=== PATIENT | female | born 1985 | race Hispanic/Latino ===

== ENCOUNTER 2018-06-27 22:44 | Emergency (ER) | payer OTHER ==
[2018-06-27] MEDS ORDERED: KETOROLAC 30 MG/ML INJ ONE (23:37)
[2018-06-27 23:56] LABS: Urine Blood 2+ (NEG); Urine Glucose NEGATIVE (NEG); Urine Protein 1+ (NEG); Urine Specific Gravity 1.015 (1.005-1.030); Urine pH 8.5 (5.0-7.0)
[2018-06-28 00:17] LABS: Absolute Lymphocytes (CBC) 2.4 K/uL (0.7-4.9); Absolute Monocytes 0.7 K/uL (0.1-1.3); Absolute Neutrophil 10.1 K/uL (1.8-8.0); Basophils % 0.7 % (0-1.3); Eosinophils % 1.6 % (0-4.4); Lymphocytes % 17.9 % (15.3-44.8); MPV 8.3 fL (7.6-11.3); Monocytes % 5.4 % (3.3-12.3)
[2018-06-28 00:27] LABS: Potassium 3.7 mmol/L (3.5-5.1)
[2018-06-28 00:28] LABS: Albumin 3.8 g/dL (3.4-5.0); Bilirubin Direct 0.2 mg/dL (0-0.2); Bilirubin Total 0.6 mg/dL (0.2-1.0); Protein, Total 7.6 g/dL (6.4-8.2)
[2018-06-28] MEDS ORDERED: MORPHINE 4 MG/ML SYR ONE (01:53)
[2018-06-28] MEDS ORDERED: ONDANSETRON 4 MG/2 ML VIAL ONE (01:55)
--- NOTE | 2018-06-28 03:32 | EDPHYS ---
Physician Documentation [facility] Name: Charlene Kramer Age: 33 yrs Sex: Female : 1985 Arrival Date: 06/27/2018 Time: 22:47 Bed 27 Private MD: ED Physician Cr Arana HPI: 06/28 02:29 This 33 yrs old Female presents to ER via Ambulatory with complaints of Back tw4 Pain, Vomiting. 02:29 The patient presents with pain that is acute, with no known mechanism of injury. The tw4 symptoms are located in the right mid back. Onset: The symptoms/episode began/occurred today. The pain does not radiate. Associated signs and symptoms: The patient has no apparent associated signs or symptoms. Modifying factors: The patient symptoms are alleviated by nothing, the patient symptoms are aggravated by nothing. Severity of symptoms: At their worst the symptoms were moderate, in the emergency department the symptoms are unchanged. The patient has not experienced similar symptoms in the past. 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 - Social history:: Smoking status: Patient/guardian denies using tobacco, Patient/guardian denies using alcohol, street drugs. - Ebola Screening: : No symptoms or risks identified at this time. ROS: 06/28 02:29 Constitutional: Negative for fever, chills, and weight loss, Eyes: Negative for injury, tw4 pain, redness, and discharge, Cardiovascular: Negative for chest pain, palpitations, and edema, Respiratory: Negative for shortness of breath, cough, wheezing, and pleuritic chest pain, MS/Extremity: Negative for injury and deformity, Skin: Negative for injury, rash, and discoloration, Neuro: Negative for headache, weakness, numbness, tingling, and seizure. Back: Positive for flank pain. Exam: 02:29 Constitutional: This is a well developed, well nourished patient who is awake, alert, tw4 and in no acute distress. Head/Face: Normocephalic, atraumatic. Chest/axilla: Normal chest wall appearance and motion. Nontender with no deformity. No lesions are appreciated. Cardiovascular: Regular rate and rhythm with a normal S1 and S2. No gallops, murmurs, or rubs. Normal PMI, no JVD. No pulse deficits. Respiratory: Lungs have equal breath sounds bilaterally, clear to auscultation and percussion. No rales, rhonchi or wheezes noted. No increased work of breathing, no retractions or nasal flaring. MS/ Extremity: Pulses equal, no cyanosis. Neurovascular intact. Full, normal range of motion. Neuro: Awake and alert, GCS 15, oriented to person, place, time, and situation. Cranial nerves II-XII grossly intact. Motor strength 5/5 in all extremities. Sensory grossly intact. Cerebellar exam normal. Normal gait. Vital Signs: 06/27 23:08 BP 137 / 83; Pulse 62; Resp 18 S; Temp 97.7(O); Pulse Ox 100% on R/A; Weight 72.57 kg bb (R); Height 5 ft. 4 in. (162.56 cm) (R); Pain 10/10; 23:46 BP 108 / 90; Pulse 63; Resp 20; Pulse Ox 100% ; lt1 06/28 01:11 BP 98 / 80; Pulse 61; Resp 18; Pulse Ox 100% on R/A; Pain 0/10; mg2 02:05 BP 112 / 71; Pulse 63; Resp 18; Pulse Ox 100% on R/A; Pain 4/10; mg2 03:11 BP 93 / 61; Pulse 65; Resp 18; Pulse Ox 100% on R/A; Pain 2/10; mg2 06/27 23:08 Body Mass Index 27.46 (72.57 kg, 162.56 cm) bb MDM: 06/27 23:22 Patient medically screened. tw4 06/28 06:50 Differential diagnosis: Cholelithiasis chronic back pain, Osteoarthritis Pyelonephritis tw4 Renal Infarction. Data reviewed: vital signs, nurses notes. Data interpreted: Pulse oximetry:. Counseling: I had a detailed discussion with the patient and/or guardian regarding: the historical points, exam findings, and any diagnostic results supporting the discharge/admit diagnosis. Counseling: I had a detailed discussion with the patient and/or guardian regarding: lab results, radiology results. Medication response: morphine markedly relieved the patient's pain. Symptoms have improved, Response to treatment: and as a result, I will discharge patient. ED course: Pt 's CT revealed 4mm ureteral stone with mild hydronephrosis. Pt states she felt better after pain meds. 06/27 23:01 Order name: Basic Metabolic Panel mg2 06/27 23:01 Order name: CBC with Diff mg2 06/27 23: Order name: Creatinine for Radiology mg2 06/27 23:01 Order name: Hepatic Function mg2 06/27 23: Order name: Lipase mg2 06/27 23:33 Order name: Urine Dipstick--Ancillary (enter results) ar5 06/27 23: Order name: IV Saline Lock; Complete Time: 23:14 mg2 06/27 23: Order name: Labs collected and sent; Complete Time: 23:14 mg2 06/27 23:23 Order name: CT Stone Protocol tw4 06/27 23:33 Order name: Urine --Ancillary (enter results) ar5 Administered Medications: 06/27 23:27 Drug: TORadol 30 mg Route: IVP; Site: right antecubital; mg2 06/28 00:30 Follow up: Response: No adverse reaction; Marked relief of symptoms mg2 01:52 Drug: morphine 4 mg Route: IVP; Site: right antecubital; mg2 03:46 Follow up: Response: No adverse reaction; Marked relief of symptoms mg2 01:52 Drug: Zofran 4 mg Route: IVP; Site: right antecubital; mg2 03:45 Follow up: Response: No adverse reaction; Marked relief of symptoms mg2 Disposition: 06/28/18 03:31 Discharged to Home. Impression: Calculus of kidney with calculus of ureter. - Condition is Stable. - Discharge Instructions: Kidney Stones, Renal Colic. - Prescriptions for Ibuprofen 800 mg Oral Tablet - take 1 tablet by ORAL route every 8 hours As needed take with food; 30 tablet. Tylenol- Codeine #3 300-30 mg Oral Tablet - take 2 tablet by ORAL route every 6 hours As needed; 6 tablet. - Medication Reconciliation Form, Thank You Letter, Antibiotic Education, Prescription Opioid Use form. - Follow up: Private Physician; When: Upon discharge from the Emergency Department; Reason: If symptoms return, Recheck today's complaints, Continuance of care. - Problem is new. - Symptoms have improved. Signatures: Dispatcher [employer] EDLaxmi Shaikh RN RN bb Cr Arana MD MD tw4 Deshawn Lamb RN RN mg2 Corrections: (The following items were deleted from the chart) 03:46 03:31 06/28/2018 03:31 Discharged to Home. Impression: Calculus of kidney with calculus mg2 of ureter. Condition is Stable. Forms are Medication Reconciliation Form, Thank You Letter, Antibiotic Education, Prescription Opioid Use. Follow up: Private Physician; When: Upon discharge from the Emergency Department; Reason: If symptoms return, Recheck today's complaints, Continuance of care. Problem is new. Symptoms have improved. tw4
--- NOTE | 2018-06-28 03:32 | ER ---
Nurse's Notes [facility] Name: Charlene Kramer Age: 33 yrs Sex: Female : 1985 Arrival Date: 06/27/2018 Time: 22:47 Bed 27 Private MD: Diagnosis: Calculus of kidney with calculus of ureter Presentation: 06/27 23:06 Presenting complaint: Patient states: she started having lower abdominal cramping which bb then started hurting in her back pain is intermittent and currently 10/10 denies dysuria. Transition of care: patient was not received from another setting of care. Onset of symptoms was June 27, 2018. Risk Assessment: Do you want to hurt yourself or someone else? Patient reports no desire to harm self or others. Initial Sepsis Screen: Does the patient meet any 2 criteria? No. Patient's initial sepsis screen is negative. Does the patient have a suspected source of infection? No. Patient's initial sepsis screen is negative. Care prior to arrival: None. 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 - Social history:: Smoking status: Patient/guardian denies using tobacco, Patient/guardian denies using alcohol, street drugs. - Ebola Screening: : No symptoms or risks identified at this time. Screenin:16 Abuse screen: Denies threats or abuse. Denies injuries from another. Nutritional mg2 screening: No deficits noted. Tuberculosis screening: No symptoms or risk factors identified. Fall Risk IV access (20 points). Assessment: 23:15 General: Appears uncomfortable, Behavior is restless. Pain: Complains of pain in back mg2 Pain radiates to abdomen Pain currently is 10 out of 10 on a pain scale. Quality of pain is described as aching, Pain began gradually, Is intermittent. Neuro: Level of Consciousness is awake, alert, obeys commands, Oriented to person, place, time, situation. Cardiovascular: Capillary refill < 3 seconds Patient's skin is warm and dry. Respiratory: Airway is patent Respiratory effort is even, unlabored, Respiratory pattern is regular, symmetrical. GI: Abdomen is flat, non-distended, Reports lower abdominal pain. :. EENT: No signs and/or symptoms were reported regarding the EENT system. Derm: Skin is intact, is healthy with good turgor, Skin is pink, warm \T\ dry. normal. Musculoskeletal: Reports pain in back. 06/28 01:12 Reassessment: Patient states feeling better. mg2 Vital Signs: 06/27 23:08 BP 137 / 83; Pulse 62; Resp 18 S; Temp 97.7(O); Pulse Ox 100% on R/A; Weight 72.57 kg bb (R); Height 5 ft. 4 in. (162.56 cm) (R); Pain 10/10; 23:46 BP 108 / 90; Pulse 63; Resp 20; Pulse Ox 100% ; lt1 06/28 01:11 BP 98 / 80; Pulse 61; Resp 18; Pulse Ox 100% on R/A; Pain 0/10; mg2 02:05 BP 112 / 71; Pulse 63; Resp 18; Pulse Ox 100% on R/A; Pain 4/10; mg2 03:11 BP 93 / 61; Pulse 65; Resp 18; Pulse Ox 100% on R/A; Pain 2/10; mg2 06/27 23:08 Body Mass Index 27.46 (72.57 kg, 162.56 cm) bb ED Course: 06/27 22:47 Patient arrived in ED. es 23:00 Deshawn Lamb, RN is Primary Nurse. mg2 23:08 Triage completed. bb 23:08 Arm band placed on Patient placed in an exam room, on a stretcher, on pulse oximetry. bb 23:16 No provider procedures requiring assistance completed. Inserted saline lock: 20 gauge mg2 in right antecubital area, using aseptic technique. Blood collected. 23:17 Patient has correct armband on for positive identification. mg2 23:22 Cr Arana MD is Attending Physician. tw4 06/28 00:26 CT Stone Protocol In Process Unspecified. EDMS 03:46 IV discontinued, intact, bleeding controlled, No redness/swelling at site. Pressure mg2 dressing applied. Administered Medications: 06/27 23:27 Drug: TORadol 30 mg Route: IVP; Site: right antecubital; mg2 06/28 00:30 Follow up: Response: No adverse reaction; Marked relief of symptoms mg2 01:52 Drug: morphine 4 mg Route: IVP; Site: right antecubital; mg2 03:46 Follow up: Response: No adverse reaction; Marked relief of symptoms mg2 01:52 Drug: Zofran 4 mg Route: IVP; Site: right antecubital; mg2 03:45 Follow up: Response: No adverse reaction; Marked relief of symptoms mg2 Outcome: 03:31 Discharge ordered by MD. murdock 03:46 Discharged to home ambulatory. mg2 03:46 Condition: stable 03:46 Discharge instructions given to patient, Instructed on discharge instructions, follow up and referral plans. medication usage, Demonstrated understanding of instructions, follow-up care, medications, Prescriptions given X 2. 03:46 Patient left the ED. mg2 Signatures: Dispatcher [employer] Effie Frey Brenda RN RN Cr Redding MD MD tw4 Deshawn Lamb RN RN [facility]
--- NOTE | 2018-06-30 10:58 | RAD REPORT ---
EXAM DESCRIPTION: CT - Stone Protocol - 06/28/2018 12:54 am EXAM DESCRIPTION: Stone Protocol CLINICAL HISTORY: 33 years Female lower abdominal cramping radiating to the back. COMPARISON: None. TECHNIQUE: Contiguous axial images obtained through the abdomen and pelvis without IV contrast. Refo rmatted images obtained. This exam was performed according to our department optimization program which includes automated exp osure control, adjustment of the mA and/or kv according to patient size and/or use of iterative recon struction technique. FINDINGS: Minimal scarring/atelectasis in the lower lungs. The liver appears unremarkable. The spleen and pancreas appear unremarkable. No adrenal masses. There is mild right hydronephrosis. There is a calculus in the distal right ureter measuring 0.4 cm. No definite renal calculi are identified. There are multiple gallstones in the gallbladder. No aneurysmal dilatation of the aorta. No bowel obstruction. The appendix appears unremarkable. No significant free pelvic fluid. Small fat-containing umbilical hernia. IMPRESSION: Mild right hydronephrosis with a calculus in the distal right ureter. Cholelithiasis. Electronically signed by: Devonte Yi MD 06/28/2018 12:38 AM CDT Due to temporary technical issues with the PACS/Fluency reporting system, reports are being signed by the in house radiologist as a courtesy to ensure prompt reporting. The interpreting radiologist is f ully responsible for the content of the report.
== END 2018-06-28 03:46 | disposition home or self-care (01) ==
LOC: ER 22:44
DX: N20.2 Calculus of kidney with calculus of ureter (principal)
CPT/HCPCS: 36415; 74176; 76377; 80048; 80076; 81003; 81025; 83690; 85025; 96374; 96375; 99284; J2405

== ENCOUNTER 2018-06-28 10:25 | Emergency (ER) | payer OTHER ==
[2018-06-28] MEDS ORDERED: NA CHLORIDE 0.9% 500 ML ONE (11:00)
[2018-06-28] MEDS ORDERED: TAMSULOSIN 0.4 MG SR CAP ONE (11:00)
[2018-06-28] MEDS ORDERED: ONDANSETRON 4 MG/2 ML VIAL ONE ×2 (11:00→11:46)
[2018-06-28] MEDS ORDERED: MORPHINE 4 MG/ML SYR ONE (11:00)
[2018-06-28] MEDS ORDERED: MAGNESIUM SULFATE 1 gm IVPB 1 GM/100 ML BAG IV ONE (11:01)
[2018-06-28] MEDS ORDERED: NA CHLORIDE 0.9% 1,000 ML ONE (11:01)
[2018-06-28 11:09] LABS: Absolute Lymphocytes (CBC) 1.2 K/uL (0.7-4.9); Absolute Monocytes 0.7 K/uL (0.1-1.3); Absolute Neutrophil 12.3 K/uL (1.8-8.0); Basophils % 0.4 % (0-1.3); Eosinophils % 0.4 % (0-4.4); Hematocrit 41.3 % (36.0-45.0); Lymphocytes % 8.6 % (15.3-44.8); MPV 8.1 fL (7.6-11.3); Monocytes % 4.6 % (3.3-12.3); RBC Red Blood Cell Count 4.88 M/uL (3.86-4.86)
[2018-06-28 11:23] LABS: Bilirubin Direct 0.2 mg/dL (0-0.2); Bilirubin Total 0.8 mg/dL (0.2-1.0); Potassium 3.6 mmol/L (3.5-5.1); Protein, Total 7.7 g/dL (6.4-8.2)
--- NOTE | 2018-06-28 12:13 | EDPHYS ---
Physician Documentation [facility] Name: Charlene Kramer Age: 33 yrs Sex: Female : 1985 Arrival Date: 06/28/2018 Time: 10:29 Bed 16 Private MD: None, None ED Physician Juan Wallis HPI: 06/28 10:55 This 33 yrs old Female presents to ER via Ambulatory with complaints of cp Possible Kidney Stone. 10:55 The patient complains of pain in the right low back and right mid back. cp 10:55 The pain radiates to the abdomen. Onset: The symptoms/episode began/occurred yesterday, cp and became worse this morning. Associated signs and symptoms: Pertinent positives: nausea, pain radiating to right lower extremity, Pertinent negatives: diarrhea, fever. The patient has been recently seen at the [facility] Emergency Department, for similar complaints labs were performed, CT scan was performed, this morning. 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 - Social history:: Smoking status: Patient/guardian denies using tobacco. - Ebola Screening: : Patient negative for fever greater than or equal to 101.5 degrees Fahrenheit, and additional compatible Ebola Virus Disease symptoms. ROS: 11:00 Constitutional: Negative for body aches, chills, fever, poor PO intake. cp 11:00 Cardiovascular: Negative for chest pain, palpitations. cp 11:00 Respiratory: Negative for cough, shortness of breath, wheezing. 11:00 Abdomen/GI: Positive for abdominal pain, nausea, Negative for vomiting, diarrhea, constipation. 11:00 Back: Positive for flank pain, on the right. 11:00 Neuro: Negative for altered mental status, headache, weakness. 11:00 All other systems are negative. Exam: 11:05 Constitutional: The patient appears in no acute distress, alert, awake, non-toxic, well cp developed, well nourished, uncomfortable. 11:05 Head/Face: Normocephalic, atraumatic. cp 11:05 Eyes: Periorbital structures: appear normal, Conjunctiva: normal, no exudate, no injection, Sclera: no appreciated abnormality, Lids and lashes: appear normal, bilaterally. 11:05 ENT: External ear(s): are unremarkable, Nose: is normal, Mouth: Lips: moist, Oral mucosa: pink and intact, moist, Posterior pharynx: is normal, airway is patent, no erythema, no exudate. 11:05 Neck: ROM/movement: is normal, is supple, without pain, no range of motions limitations, no nuchal rigidity. 11:05 Chest/axilla: Inspection: normal, Palpation: is normal, no crepitus, no tenderness. 11:05 Cardiovascular: Rate: normal, Rhythm: regular. 11:05 Respiratory: the patient does not display signs of respiratory distress, Respirations: normal, no use of accessory muscles, no retractions, no splinting, no tachypnea, labored breathing, is not present, Breath sounds: are clear throughout, no decreased breath sounds, no stridor, no wheezing. 11:05 Abdomen/GI: Inspection: abdomen appears normal, Bowel sounds: active, all quadrants, Palpation: soft, in all quadrants, moderate abdominal tenderness, in the right lower quadrant, involuntary guarding, is not appreciated. 11:05 Back: pain, that is moderate, of the right mid back and right low back, ROM is normal. 11:05 Skin: cellulitis, is not appreciated, no rash present. Vital Signs: 10:29 BP 116 / 80; Pulse 61; Resp 16; Temp 98.2(O); Pulse Ox 99% on R/A; Weight 74.84 kg (R); rb1 Height 5 ft. 4 in. (162.56 cm) (R); Pain 10/10; 11:29 BP 106 / 69; Pulse 64; Resp 19; Pulse Ox 100% on R/A; Pain 4/10; rb1 12:29 BP 117 / 88; Pulse 62; Resp 16; Pulse Ox 99% on R/A; rb1 10:29 Body Mass Index 28.32 (74.84 kg, 162.56 cm) rb1 MDM: 10:32 Patient medically screened. cp 11:00 Differential diagnosis: nephrolithiasis, pyelonephritis, UTI, ureter obstruction, cp hydronephrosis. 11:50 Data reviewed: vital signs, nurses notes, lab test result(s). cp 11:50 Response to treatment: the patient's symptoms have mildly improved after treatment. cp 12:20 Physician consultation: DR Garcia, urologist \T\[facility], will cp accept patient as transfer. 06/28 10:44 Order name: Basic Metabolic Panel; Complete Time: 11:31 cp 06/28 11:31 Interpretation: Normal except: GLUC 137; CRE 1.58; GFR 38. cp 06/28 10:44 Order name: CBC with Diff cp 06/28 11:32 Interpretation: Normal except: WBC 14.4; RBC 4.88; PHILIPP% 86.0; LYM% 8.6; NEUT A 12.3. cp 06/28 10:44 Order name: Creatinine for Radiology; Complete Time: 11:31 cp 06/28 11:32 Interpretation: Abnormal: CRE 1.63; GFR 36. cp 06/28 10:44 Order name: Hepatic Function; Complete Time: 11:31 cp 06/28 12:11 Interpretation: Normal except: GLOB 3.7. cp 06/28 10:44 Order name: Lipase; Complete Time: 11:31 cp 06/28 10:44 Order name: Urine Microscopic Only; Complete Time: 13:49 cp 06/28 13:49 Interpretation: Normal except: UWBC 5-10; UBACT 20-50. 06/28 10:44 Order name: XRAY Abdomen 1 View (KUB); Complete Time: 13:49 06/28 12:22 Order name: Urine Culture EDDE 06/28 10:44 Order name: IV Saline Lock; Complete Time: 10:57 cp 06/28 10:44 Order name: Labs collected and sent; Complete Time: 10:57 cp Administered Medications: 11:00 Drug: Zofran 4 mg Route: IVP; Site: left forearm; rb1 11:30 Follow up: Response: No adverse reaction; Nausea unchanged rb1 11:00 Drug: Magnesium Sulfate 1 grams Route: IVPB; Infused Over: 1 hrs; Site: left forearm; rb1 12:10 Follow up: Response: No adverse reaction; IV Status: Completed infusion rb1 11:00 Drug: Flomax 0.4 mg Route: PO; rb1 11:30 Follow up: Response: No adverse reaction rb1 11:00 Drug: morphine 4 mg Route: IVP; Site: left forearm; rb1 11:15 Follow up: Response: No adverse reaction; Pain is decreased rb1 11:00 Drug: NS 0.9% 500 ml Route: IV; Rate: bolus; Site: left forearm; rb1 11:35 Follow up: IV Status: Completed infusion rb1 11:35 Drug: NS 0.9% 1000 ml Route: IV; Rate: 125 ml/hr; Site: left forearm; rb1 13:56 Follow up: IV Status: Infusion continued upon transfer rb1 11:36 Drug: Zofran 4 mg Route: IVP; Site: left forearm; rb1 12:10 Follow up: Response: No adverse reaction; Nausea is decreased rb1 12:55 Drug: Rocephin - (cefTRIAXone) 1 grams Route: IVPB; Infused Over: 30 mins; Site: left rb1 forearm; 13:25 Follow up: Response: No adverse reaction; IV Status: Completed infusion rb1 Disposition: 12:30 Chart complete. cp Disposition: 06/28/18 12:13 Transfer ordered to [facility]. Diagnosis is Calculus of kidney and ureter - Right. - Reason for transfer: Higher level of care. - Accepting physician is DR Garcia. - Condition is Stable. - Problem is new. - Symptoms have improved. Signatures: Dispatcher [employer] EDMS Jose R Lam PA PA cp Barber, Rebecca, RN RN rb1 Corrections: (The following items were deleted from the chart) 13:56 12:13 06/28/2018 12:13 Transfer ordered to [facility]. Diagnosis is rb1 Calculus of kidney and ureter - Right. Reason for transfer: Higher level of care. Accepting physician is DR Garcia. Condition is Stable. Problem is new. Symptoms have improved. cp
--- NOTE | 2018-06-28 12:13 | ER ---
Nurse's Notes [facility] Name: Charlene Kramer Age: 33 yrs Sex: Female : 1985 Arrival Date: 06/28/2018 Time: 10:29 Bed 16 Private MD: None, None Diagnosis: Calculus of kidney and ureter-Right Presentation: 06/28 10:29 Presenting complaint: Patient states: Reports she was here yesterday for the same rb1 complaint and was diagnosed with kidney stones. She was unable to get her prescriptions filled due to the pharmacy being closed when she was discharged. Transition of care: patient was not received from another setting of care. Onset of symptoms was June 27, 2018. Risk Assessment: Do you want to hurt yourself or someone else? Patient reports no desire to harm self or others. Initial Sepsis Screen: Does the patient meet any 2 criteria? No. Patient's initial sepsis screen is negative. Does the patient have a suspected source of infection? No. Patient's initial sepsis screen is negative. Care prior to arrival: None. 10:29 Method Of Arrival: Ambulatory rb1 10: Acuity: RONY 3 rb1 Triage Assessment: 10: General: Appears uncomfortable, Behavior is crying, Denies fever, Pt. was here rb1 yesterday and diagnosed with kidney stones on the right side.. General: Pt. received prescription for Ibuprofen 800 mg and Tylenol #3 yesterday when she came to the ER.. Pain: Complains of pain in suprapubic area, right lower quadrant and left lower quadrant Pain radiates to right flank Pain currently is 10 out of 10 on a pain scale. Pain began 1 day ago. Neuro: Level of Consciousness is awake, alert, obeys commands, Oriented to person, place, time, situation. Cardiovascular: Capillary refill < 3 seconds is brisk in bilateral fingers. Respiratory: Airway is patent Respiratory effort is even, unlabored, Respiratory pattern is regular, symmetrical. GI: Reports nausea, vomiting. : Reports pain with urination. Derm: Skin is pink, warm \T\ dry. Musculoskeletal: Range of motion: intact in all extremities. 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 - Social history:: Smoking status: Patient/guardian denies using tobacco. - Ebola Screening: : Patient negative for fever greater than or equal to 101.5 degrees Fahrenheit, and additional compatible Ebola Virus Disease symptoms. Screenin:29 Abuse screen: Denies threats or abuse. Nutritional screening: No deficits noted. rb1 Tuberculosis screening: No symptoms or risk factors identified. Fall Risk None identified. Assessment: 10:29 General: See triage assessment. rb1 10:29 GI: Bowel sounds present X 4 quads. Abd is soft X 4 quads. rb1 11:29 Reassessment: Patient appears in no apparent distress at this time. No changes from rb1 previously documented assessment. pt. still fills nauseous; provider notified. 12:29 Reassessment: Patient appears in no apparent distress at this time. Patient and/or rb1 family updated on plan of care and expected duration. Pain level reassessed. Patient is alert, oriented x 3, equal unlabored respirations, skin warm/dry/pink. 12:45 Reassessment: Gave report to RENETTA Conley at [facility]. Information from the rb1 SBAR was given. All questions asked and answered. 13:29 Reassessment: Patient appears in no apparent distress at this time. Patient states rb1 symptoms have improved. Vital Signs: 10:29 BP 116 / 80; Pulse 61; Resp 16; Temp 98.2(O); Pulse Ox 99% on R/A; Weight 74.84 kg (R); rb1 Height 5 ft. 4 in. (162.56 cm) (R); Pain 10/10; 11:29 BP 106 / 69; Pulse 64; Resp 19; Pulse Ox 100% on R/A; Pain 4/10; rb1 12:29 BP 117 / 88; Pulse 62; Resp 16; Pulse Ox 99% on R/A; rb1 10:29 Body Mass Index 28.32 (74.84 kg, 162.56 cm) rb1 ED Course: 10:29 Patient arrived in ED. mr 10:29 None, None is Private Physician. mr 10:29 Chasidy Scott, RN is Primary Nurse. rb1 10:29 Arm band placed on right wrist. rb1 10:29 Patient has correct armband on for positive identification. Bed in low position. Call rb1 light in reach. Side rails up X 1. Pulse ox on. NIBP on. 10:30 Jose R Lam PA is PHCP. cp 10:30 Juan Wallis MD is Attending Physician. cp 10:41 Triage completed. rb1 10:54 Initial lab(s) drawn, by me, sent to lab. Inserted saline lock: 22 gauge in left dh3 forearm, using aseptic technique. Blood collected. 12:37 XRAY Abdomen 1 View (KUB) In Process Unspecified. EDMS 13:56 No provider procedures requiring assistance completed. Patient transferred, IV remains rb1 in place. Administered Medications: 11:00 Drug: Zofran 4 mg Route: IVP; Site: left forearm; rb1 11:30 Follow up: Response: No adverse reaction; Nausea unchanged rb1 11:00 Drug: Magnesium Sulfate 1 grams Route: IVPB; Infused Over: 1 hrs; Site: left forearm; rb1 12:10 Follow up: Response: No adverse reaction; IV Status: Completed infusion rb1 11:00 Drug: Flomax 0.4 mg Route: PO; rb1 11:30 Follow up: Response: No adverse reaction rb1 11:00 Drug: morphine 4 mg Route: IVP; Site: left forearm; rb1 11:15 Follow up: Response: No adverse reaction; Pain is decreased rb1 11:00 Drug: NS 0.9% 500 ml Route: IV; Rate: bolus; Site: left forearm; rb1 11:35 Follow up: IV Status: Completed infusion rb1 11:35 Drug: NS 0.9% 1000 ml Route: IV; Rate: 125 ml/hr; Site: left forearm; rb1 13:56 Follow up: IV Status: Infusion continued upon transfer rb1 11:36 Drug: Zofran 4 mg Route: IVP; Site: left forearm; rb1 12:10 Follow up: Response: No adverse reaction; Nausea is decreased rb1 12:55 Drug: Rocephin - (cefTRIAXone) 1 grams Route: IVPB; Infused Over: 30 mins; Site: left rb1 forearm; 13:25 Follow up: Response: No adverse reaction; IV Status: Completed infusion rb1 Outcome: 12:13 ER care complete, transfer ordered by . cp 13:56 Patient left the ED. rb1 13:56 Transferred by ground EMS to [facility] [place], Transfer form completed. rb1 13:56 Condition: stable 13:56 Instructed on the need for transfer. Signatures: Dispatcher [employer] Martina Jolley mr Jose R Lam PA PA cp Barber, Rebecca, RN RN [facility] Marlyn Almanzar 3
[2018-06-28 12:20] LABS: Urine Bacteria 20-50 /HPF (<20); Urine Culture Reflex Order REFLEXED; Urine RBC <5 /HPF (NONE SEEN)
[2018-06-28] MEDS ORDERED: CEFTRIAXONE/SWI 1gm 1 GM/10 ML SYR ONE (13:08)
--- NOTE | 2018-06-28 13:38 | RAD REPORT ---
EXAM DESCRIPTION: RAD - Abdomen 1 View (KUB) - 06/28/2018 12:36 pm CLINICAL HISTORY: Abdomen pain. FINDINGS: The bowel gas pattern is unremarkable. The patient's known right distal ureteral calculus is not clearly seen on this exam
[2018-06-28 20:27] LABS: Blood Morphology Comment NOT SEEN (NOT SEEN); Platelet Estimate ADEQ; Urine White Blood Cell Casts OK
== END 2018-06-28 13:56 | disposition short-term general hospital (02) ==
LOC: ER 10:25
DX: N20.2 Calculus of kidney with calculus of ureter (principal); Z87.442 Personal history of urinary calculi
CPT/HCPCS: 36415; 74018; 80048; 80076; 81015; 83690; 85025; 87086; 87088; 96361; 96365; 96367; 96375; 99285; J0696; J2405; J3475; J7030

== ENCOUNTER 2018-10-03 11:42 | Emergency (ER) | payer OTHER ==
--- OUTSIDE RECORDS SUMMARY | 2018-10-03 11:53 | XMS REPORT | Clinical Summary ---
:1985 Author Organization [facility] Address [address] [place] [address] Care Team Providers Name Role Phone Pcp, No Primary Care Provider Unavailable Allergies No Known Allergies Medications Medication Sig Dispensed Refills Start Date End Date Status sulfamethoxazole-trim Take 1 tablet (160 14 tablet 0 06/29/2018 ethoprim (BACTRIM DS) mg of trimethoprim 9 800-160 mg per tablet total) by mouth 2 (two) times daily for 7 days. traMADol (ULTRAM) 50 Take 1 tablet (50 30 tablet 0 06/29/2018 mg tablet mg total) by mouth 9 every 6 (six) hours as needed for up to 10 days. Max Daily Amount: 200 mg ondansetron (ZOFRAN) Take 1 tablet (4 30 tablet 0 06/29/2018 4 MG tablet mg total) by mouth 9 2 (two) times daily as needed for Nausea for up to 7 days. ketorolac (TORADOL) Take 1 tablet (10 10 tablet 0 07/23/2018 10 mg tablet mg total) by mouth 9 every 6 (six) hours as needed for Pain for up to 5 days. phenazopyridine Take 1 tablet (200 10 tablet 0 07/23/2018 (PYRIDIUM) 200 MG mg total) by mouth 9 tablet 3 (three) times daily as needed (for urinary discomfort) for up to 3 days. sulfamethoxazole-trim Take 1 tablet (160 6 tablet 0 07/23/2018 ethoprim (BACTRIM DS) mg of trimethoprim 9 800-160 mg per tablet total) by mouth 2 (two) times daily for 3 days. 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 Resolved Problems Problem Noted Date Resolved Date Contraceptive management 08/15/2017 06/29/2018 Encounters Date Type Specialty Care Team Description 07/23/2018 Anesthesia Event Natalie Lea GRNA 07/23/2018 Surgery Efren Garcia MD 07/23/2018 Hospital Encounter Efren Garcia MD 07/16/2018 Hospital Encounter Pre-Admission Efren Garcia MD 07/16/2018 Orders Only Lab Efren Garcia Calculus of ureter (Primary Dx); MD Irma Personal history of surgery to heart and great vessels, presenting hazards to health; Urinary tract infection without hematuria, site unspecified; Other specified pre-operative examination 06/28/2018 Anesthesia Event Kishor Mercer MD 06/28/2018 Surgery Efren Garcia CYSTBARRETT JONES MD IVELISSE 06/28/2018 - Hospital Encounter General Internal Efren Garcia Right ureteral 06/29/2018 Medicine MD Irma stone 06/28/2018 Outside Orders Lab Edward Oquendo Right ureteral stone (Primary Dx) after 10/02/2017 Social History Tobacco Use Types Packs/Day Years Used Date Never Smoker Smokeless Tobacco: Never Used Alcohol Use Drinks/Week oz/Week Comments No Alcohol Habits Answer Date Recorded How often do you have a drink containing alcohol? Never 07/16/2018 How many drinks containing alcohol do you have on a typical Not asked day when you are drinking? How often do you have six or more drinks on one occasion? Not asked Sex Assigned at Date Recorded Not on file Job Start Date Occupation Industry Not on file Not on file Not on file Travel History Travel Start Travel End No recent travel history available. Last Filed Vital Signs Vital Sign Reading Time Taken Blood Pressure 92/62 07/23/2018 5:45 PM CDT Pulse 76 07/23/2018 5:45 PM CDT Temperature 36.6 C (97.8 F) 07/23/2018 5:45 PM CDT Respiratory Rate 17 07/23/2018 5:45 PM CDT Oxygen Saturation 100% 07/23/2018 5:45 PM CDT Inhaled Oxygen Concentration - - Weight 77.1 kg (169 lb 14.4 oz) 07/23/2018 11:46 AM CDT Height 162.6 cm (5' 4") 07/23/2018 11:46 AM CDT Body Mass Index 29.16 07/23/2018 11:46 AM CDT Plan of Treatment Not on file Implants Implanted Type Area Plant Tech Device Shelf Model / Identifier Expiration Serial / Lot Date Set Stent Injection 6x26cm [id number] - [id number] IMPLANTS [employer] 12/02 [id number] / Implanted: Qty: 1 on 06/28/2018 by Efren Garcia MD SCI:ONCOLOGY / [id number] Procedures Procedure Name Priority Date/Time Associated Comments Diagnosis FL EDGE BANDER HAND IN OR 30 Routine 07/23/2018 3:09 PM Results for this MINUTE INCREMENTS CDT procedure are in the results section. CYSTOSCOPY,REMOVAL 07/23/2018 1:30 PM Right ureteral URETERAL STENTS CDT stone Case Notes 90 MINS PER NELLIE Special Needs (STONE BASKET) CYSTOSCOPY,URETEROSCOPY 07/23/2018 1:30 PM CDT Right ureteral stone Case Notes 90 MINS PER NELLIE Special Needs (STONE BASKET) CYSTOSCOPY 07/23/2018 1:30 PM CDT Right ureteral stone Case Notes 90 MINS PER NELLIE Special Needs (STONE BASKET) POCT-HEMOGLOBIN METER Routine 07/23/2018 12:21 Results for this PM CDT procedure are in the results section. POCT , URINE STAT 07/23/2018 11:16 Results for this AM CDT procedure are in the results section. CBC W/PLT COUNT & AUTO Routine 07/16/2018 4:27 Calculus of ureter Results for this DIFFERENTIAL PM CDT Personal history of procedure are in surgery to heart the results and great vessels, section. presenting hazards to health Urinary tract infection without hematuria, site unspecified Other specified pre-operative examination CBC W/PLT COUNT & AUTO Routine 07/16/2018 4:27 Calculus of ureter Results for this DIFFERENTIAL PM CDT Personal history of procedure are in surgery to heart the results and great vessels, section. presenting hazards to health Urinary tract infection without hematuria, site unspecified Other specified pre-operative examination COMPREHENSIVE METABOLIC Routine 07/16/2018 4:27 Calculus of ureter Results for this PANEL PM CDT Personal history of procedure are in surgery to heart the results and great vessels, section. presenting hazards to health Urinary tract infection without hematuria, site unspecified Other specified pre-operative examination HCG, QUANTITATIVE, Routine 07/16/2018 4:27 Calculus of ureter Results for this PM CDT Personal history of procedure are in surgery to heart the results and great vessels, section. presenting hazards to health Urinary tract infection without hematuria, site unspecified Other specified pre-operative examination URINALYSIS W/ Routine 07/16/2018 4:27 Calculus of ureter Results for this MICROSCOPIC PM CDT Personal history of procedure are in surgery to heart the results and great vessels, section. presenting hazards to health Urinary tract infection without hematuria, site unspecified Other specified pre-operative examination URINE CULTURE Routine 07/16/2018 4:27 Calculus of ureter Results for this PM CDT Personal history of procedure are in surgery to heart the results and great vessels, section. presenting hazards to health Urinary tract infection without hematuria, site unspecified Other specified pre-operative examination RHYTHM STRIP - SCAN 07/01/2018 3:03 PM CDT CBC W/PLT COUNT & AUTO STAT 06/29/2018 8:19 Results for this DIFFERENTIAL AM CDT procedure are in the results section. CBC W/PLT COUNT & AUTO STAT 06/29/2018 8:19 Results for this DIFFERENTIAL AM CDT procedure are in the results section. BASIC METABOLIC PANEL Routine 06/29/2018 5:12 Results for this (7) AM CDT procedure are in the results section. FUNGUS CULTURE + SMEAR Routine 06/28/2018 6:53 Results for this PM CDT procedure are in the results section. AFB CULTURE + SMEAR Routine 06/28/2018 6:53 Results for this PM CDT procedure are in the results section. SPIN/CONCENTRATION Routine 06/28/2018 6:53 Results for this CHARGE PM CDT procedure are in the results section. FL EDGE BANDER HAND IN OR 30 STAT 06/28/2018 6:53 Results for this MINUTE INCREMENTS PM CDT procedure are in the results section. SURGICALLY OBTAINED Routine 06/28/2018 6:53 Right ureteral Results for this CULTURE + GRAM STAIN PM CDT stone procedure are in the results section. FUNGUS CULTURE + SMEAR Routine 06/28/2018 6:50 Results for this PM CDT procedure are in the results section. AFB CULTURE + SMEAR Routine 06/28/2018 6:50 Results for this PM CDT procedure are in the results section. SPIN/CONCENTRATION Routine 06/28/2018 6:50 Results for this CHARGE PM CDT procedure are in the results section. URINE CULTURE Routine 06/28/2018 6:50 Right ureteral Results for this PM CDT stone procedure are in the results section. PROCEDURE W/ C-ARM 06/28/2018 5:30 Ureteral calculus PM CDT CYSTOSCOPY,INSERTION 06/28/2018 5:30 Ureteral calculus URETERAL STENTS PM CDT CYSTOSCOPY,RETROGRADES 06/28/2018 5:30 Ureteral calculus PM CDT SCREEN, URINE STAT 06/28/2018 4:48 Results for this PM CDT procedure are in the results section. URINALYSIS W/ REFLEX Routine 06/28/2018 4:48 Results for this URINE CULTURE PM CDT procedure are in the results section. after 10/02/2017 Results [place] pediatric radiologist in or 30 minute increments (07/23/2018 3:09 PM CDT)Only the most recent of2 resultswithin the time period is included. Specimen Narrative Performed At FINAL REPORT [employer] TECHNICAL NOTE-C-ARM FLUOROSCOPY C-arm utilized during urologic procedure. No interpretation rendered. Fluoroscopy time 18.2 seconds. Cumulative dose 241.6 mrad. Signed: Lewis Valdes MD Report Verified Date/Time:07/23/2018 15:08:17 Reading Location: [address] Radiology Reading Room Procedure Note Interface, External Ris In - 07/23/2018 3:36 PM CDT FINAL REPORT TECHNICAL NOTE-C-ARM FLUOROSCOPY C-arm utilized during urologic procedure. No interpretation rendered. Fluoroscopy time 18.2 seconds. Cumulative dose 241.6 mrad. Signed: Lewis Valdes MD Report Verified Date/Time: 07/23/2018 15:08:17 Reading Location: [address] Radiology Reading Room Performing Organization Address City/State/Zipcode Phone Number [employer] POC-Hemoglobin meter (07/23/2018 12:21 PM CDT) POC-Hemoglobin Meter 12.3Comment: TESTED AT 12.0 - 15.0 g/dL [facility] [address] [facility] [address] Specimen Blood Performing Organization Address City/State/Zipcode Phone Number [facility] [address], [place] [phone] CENTER POCT , urine (07/23/2018 11:16 AM CDT) Test Urine, POC Negative Control line present?, POC Yes Background clear?, POC Yes UPT Cassette Lot #, POC [id number] UPT Cassette Expiration Date, POC 12/07/19 Specimen CBC with platelet count + automated diff (07/16/2018 4:27 PM CDT)Only the most recent of2 resultswithin the time period is included. WBC 12.4 (H) 3.5 - 10.5 K/L [facility] RBC 4.47 3.93 - 5.22 M/L [facility] Hemoglobin 12.6 11.2 - 15.7 GM/DL [facility] Hematocrit 39.4 34.1 - 44.9 % [facility] MCV 88.1 79.4 - 94.8 fL [facility] MCH 28.2 25.6 - 32.2 pg [facility] MCHC 32.0 (L) 32.2 - 35.5 GM/DL [facility] RDW 12.7 11.7 - 14.4 % [facility] Platelets 307 150 - 450 K/CU MM [facility] MPV 9.3 (L) 9.4 - 12.3 fL [facility] nRBC 0 0 - 0 /100 WBC [facility] % Neutros 64 % [facility] % Lymphs 24 % [facility] % Monos 7 % [facility] % Eos 4 % [facility] % Baso 1 % [facility] # Neutros 7.94 (H) 1.56 - 6.13 K/L [facility] # Lymphs 3.03 1.18 - 3.74 K/L [facility] # Monos 0.81 (H) 0.24 - 0.36 K/L [facility] # Eos 0.47 (H) 0.04 - 0.36 K/L [facility] # Baso 0.11 (H) 0.01 - 0.08 K/L [facility] Immature Granulocytes-Relative 0 0 - 1 % [facility] Specimen Blood Performing Organization Address City/State/Zipcode Phone Number [facility] [address] [place] [address] [phone] CENTER Urinalysis w/ Microscopic (07/16/2018 4:27 PM CDT) Color, UA Light Yellow [facility] Clarity, UA Clear [facility] Specific [place], UA 1.015 1.001 - 1.035 [facility] pH, UA 7.0 5.0 - 8.0 [facility] Protein, UA 20 mg/dL (A) Negative [facility] Glucose, UA Negative Negative [facility] Ketones, UA Negative Negative [facility] Bilirubin, UA Negative Negative [facility] Blood, UA Moderate (A) Negative [facility] Nitrite, UA Negative Negative [facility] Leukocytes, UA Large (A) Negative [facility] Urobilinogen, UA 0.2 0.2 - 1.0 mg/dL [facility] RBC, UA 65 /HPF [facility] WBC, UA 10 /HPF [facility] Bacteria, UA Few [facility] Squam Epithel, UA <1 /HPF [facility] Specimen Source [facility] Specimen Urine Performing Organization Address City/[facility]/Zipcode Phone Number [address] [address] [place] Urine culture (07/16/2018 4:27 PM CDT)Only the most recent of2 resultswithin the time period is included. Result >100,000 col/mL skin alondra [facility] Specimen Urine Performing Organization Address [facility] Phone Number [address] [address] [place] hCG, quantitative, (07/16/2018 4:27 PM CDT) hCG Quant <1 0 - 10 mIU/mL [facility] Specimen Blood Narrative Performed At Non- Females: <10 mIU/mL [facility] Females: Gestation AgeReference Range(mIU/mL) 0.2-1 Week5-50 1-2 Upoop95-217 2-3 Weeks 100-5,000 3-4 Weeks 500-10,000 4-5 Weeks 1,000-50,000 5-6 Weeks10,000-100,000 6-8 Weeks15,000-200,000 2-3 Months 10,000-100,000 Performing Organization Address City/[facility] Phone Number [address] [address] [phone] [place] Comprehensive metabolic panel (07/16/2018 4:27 PM CDT) Protein, Total 7.9Comment: Specimen 6.0 - 8.3 gm/dL [facility] slightly hemolyzed [facility] Albumin 4.4Comment: Specimen 3.5 - 5.0 g/dL [facility] slightly hemolyzed [facility] Alkaline Phosphatase 94 40 - 150 U/L [facility] Total Bilirubin 0.2Comment: Specimen 0.2 - 1.2 mg/dL [facility] slightly hemolyzed [facility] Sodium 141 136 - 145 meq/L [facility] Potassium 4.6Comment: Specimen 3.5 - 5.1 meq/L [facility] slightly hemolyzed [facility] Chloride 106 98 - 107 meq/L [facility] CO2 26 22 - 29 meq/L [facility] BUN 17 7 - 21 mg/dL [facility] Creatinine 0.79Comment: Specimen 0.57 - 1.25 mg/dL [facility] slightly hemolyzed [facility] Glucose 76 70 - 105 mg/dL [facility] Calcium 9.8 8.4 - 10.2 mg/dL [facility] AST 34Comment: Specimen 5 - 34 U/L [facility] slightly hemolyzed [facility] ALT 53Comment: Specimen 6 - 55 U/L [facility] hemolyzed [facility] EGFR 84Comment: ESTIMATED GFR mL/min/1.73 sq m [facility] IS NOT ACCURATE [facility] CREATININE CLEARANCE IN PREDICTING GLOMERULAR FILTRATION RATE. ESTIMATED GFR IS NOT APPLICABLE FOR DIALYSIS PATIENTS. Specimen Blood Performing Organization Address City/State/Zipcode Phone Number [facility] [address] [place] [address] CENTER RHYTHM STRIP - SCAN (07/01/2018 3:03 PM CDT) Narrative Performed At Basic Metabolic Panel (06/29/2018 5:12 AM CDT) Sodium 141 136 - 145 meq/L [facility] Potassium 4.0 3.5 - 5.1 meq/L [facility] Chloride 111 (H) 98 - 107 meq/L [facility] CO2 22 22 - 29 meq/L [facility] BUN 10 7 - 21 mg/dL [facility] Creatinine 0.77 0.57 - 1.25 mg/dL [facility] Glucose 85 70 - 105 mg/dL [facility] Calcium 8.5 8.4 - 10.2 mg/dL [facility] EGFR Comment: INSUFFICIENT CLINICAL mL/min/1.73 sq m [facility] DATA TO CALCULATE ESTIMATED [facility] CENTER GFR. Specimen Blood Performing Organization Address City/[facility]ode Phone Number [address] [address] [place] AFB culture + smear (06/28/2018 6:53 PM CDT)Only the most recent of2 resultswithin the time period is included. Result No acid-fast bacilli isolated in [facility] 42 days [facility] AFB Smear No acid fast bacilli seen [facility] Specimen Body Fluid - Renal, Right Performing Organization Address [facility] Phone Number [address] [address] [phone] CENTER Fungus culture + smear (06/28/2018 6:53 PM CDT)Only the most recent of2 resultswithin the time period is included. Result No fungus isolated in 28 days [facility] Fungus Smear No fungi seen [facility] Specimen Body Fluid - Renal, Right Performing Organization Address City/[facility]/Zipcode Phone Number [address] [address] [place] SPIN/CONCENTRATION CHARGE (06/28/2018 6:53 PM CDT)Only the most recent of2 resultswithin the time period is included. Concentration charged Done [facility] Specimen Body Fluid - Renal, Right Performing Organization Address City/[facility] Phone Number [facility] [address] [place] [address] [place] Surgically obtained culture + gram stain (06/28/2018 6:53 PM CDT) Result No growth [facility] Gram Stain Result No WBCs [facility] Gram Stain Result No organisms seen [facility] Specimen Urine Performing Organization Address City/[facility]/Zipcode Phone Number [facility] [address] [place] [address] [phone] [place] Urinalysis w/Microscopic + Reflex to Culture (06/28/2018 4:48 PM CDT) Color, UA Yellow [facility] Clarity, UA Hazy [facility] Specific [place], UA 1.015 1.001 - 1.035 [facility] pH, UA 6.5 5.0 - 8.0 [facility] Protein, UA 20 mg/dL (A) Negative [facility] Glucose, UA Negative Negative [facility] Ketones, UA 20 mg/dL (A) Negative [facility] Bilirubin, UA Negative Negative [facility] Blood, UA Large (A) Negative [facility] Nitrite, UA Negative Negative [facility] Leukocytes, UA Large (A) Negative [facility] Urobilinogen, UA 0.2 0.2 - 1.0 mg/dL [facility] RBC, UA 18 /HPF [facility] WBC, UA 6 /HPF [facility] Bacteria, UA Many [facility] Squam Epithel, UA 6 /HPF [facility] Specimen Source [facility] Specimen Urine Performing Organization Address City/State/Zipcode Phone Number [facility] [address] [place] [address] [place] Screen, urine (06/28/2018 4:48 PM CDT) Preg Test, Ur Negative [facility] Specimen Urine Performing Organization Address City/[facility]/Zipcode Phone Number [facility] [address], [place] [phone] [place] after 10/02/2017 Insurance Payer Benefit Plan / Subscriber ID Type Phone Address Group MEDICAID - MEDICAID MEDICAID [facility] xxxxxxxxx Medicaid Contracted [facility] CARE Advance Directives For more information, please contact:[address] [phone] Code Status Date Activated Date Inactivated Comments Full Code 06/28/2018 3:34 PM 06/29/2018 10:06 PM This code status was determined by: Patient
--- OUTSIDE RECORDS SUMMARY | 2018-10-03 11:53 | XMS REPORT ---
:1985 [facility] Address [address] [place] [address] Dr. Garcia [address] [place] [id number] Care Team Providers Name Role Phone PERNELL LEVY Unavailable Unavailable Problems This patient has no known problems. Allergies, Adverse Reactions, Alerts This patient has no known allergies or adverse reactions. Medications This patient has no known medications. Results Test Description Test Time Test Comments Text Results Atomic Results Result Comments AFB CULTURE + SMEAR 2018-08-13 10:28:00 Test Item Value Reference Range Comments CULTURE (BEAKER) (test byqp=7051) No acid-fast bacilli isolated in 42 days AFB SMEAR (BEAKER) (test dlsh=938) No acid fast bacilli seen AFB CULTURE + [id number] 10:28:00 Test Item Value Reference Range Comments CULTURE (BEAKER) (test No acid-fast bacilli isolated qtia=8401) in 42 days AFB SMEAR (BEAKER) (test No acid fast bacilli seen nygj=034) FUNGUS CULTURE + [id number] 17:20:00 Test Item Value Reference Range Comments CULTURE (BEAKER) (test No fungus isolated in 28 days zwze=0837) FUNGUS SMEAR (BEAKER) (test No fungi seen ihqn=7413) FUNGUS CULTURE + [id number] 17:20:00 Test Item Value Reference Range Comments CULTURE (BEAKER) (test No fungus isolated in 28 days klwb=4791) FUNGUS SMEAR (BEAKER) (test No fungi seen wibi=0137) [place], 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 No interpretation rendered. Fluoroscopy time 18.2 seconds. Cumulative dose 241.6 mrad. Signed: Lewis Valdes MDReport Verified Date/Time: 07/23/2018 15:08:17 Reading Location: [address] Radiology Reading Room Electronically signed by: LEWIS VALDES on 2018 03:08 PMPOCT-HEMOGLOBIN [id number] 12:25:00 Test Item Value Reference Range Comments POC-HEMOGLOBIN METER 12.3 g/dL 12.0-15.0 TESTED AT [facility] [address] (BEAKER) (test orww=9609) [facility] [address] URINE [id number] 09:31:00 Test Item Value Reference Range Comments CULTURE (BEAKER) (test yqbp=7338) >100,000 col/mL skin alondra HCG, QUANTITATIVE, [id number] 17:15:00 Test Item Value Reference Range Comments GONADOTROPIN, CHORIONIC (HCG) QUANT (BEAKER) (test < mIU/mL 0-10 spqt=879) Non- Females: <10 mIU/mL Females: Gestation Age Reference Range(mIU/mL) 0.2-1 Week 5-50 1-2 Weeks 50-500 2-3 Weeks 100-5,000 3-4Weeks 500-10,000 4 -5 Weeks 1,000-50,000 5-6 Weeks 10,000-100,000 6-8 Weeks 15,000-200,000 2-3 Months 10,000-100,000COMPREHENSIVE METABOLIC [id number] 17:14:00 Test Item Value Reference Range Comments TOTAL PROTEIN (BEAKER) 7.9 gm/dL 6.0-8.3 Specimen slightly (test lkuz=640) hemolyzed ALBUMIN (BEAKER) (test 4.4 g/dL 3.5-5.0 Specimen slightly uxtc=7040) hemolyzed ALKALINE PHOSPHATASE 94 U/L 40-150 (BEAKER) (test ikvx=582) BILIRUBIN TOTAL (BEAKER) 0.2 mg/dL 0.2-1.2 Specimen slightly (test dhbz=910) hemolyzed SODIUM (BEAKER) (test 141 meq/L 136-145 zqrs=303) POTASSIUM (BEAKER) (test 4.6 meq/L 3.5-5.1 Specimen slightly cixc=201) hemolyzed CHLORIDE (BEAKER) (test 106 meq/L 98-107 bmmc=517) CO2 (BEAKER) (test 26 meq/L 22-29 qkuw=268) BLOOD UREA NITROGEN 17 mg/dL 7-21 (BEAKER) (test oazp=731) CREATININE (BEAKER) (test 0.79 mg/dL 0.57-1.25 Specimen slightly xqbb=812) hemolyzed GLUCOSE RANDOM (BEAKER) 76 mg/dL 70-105 (test wrai=796) CALCIUM (BEAKER) (test 9.8 mg/dL 8.4-10.2 ojuu=049) AST (SGOT) (BEAKER) (test 34 U/L 5-34 Specimen slightly ppug=322) hemolyzed ALT (SGPT) (BEAKER) (test 53 U/L 6-55 Specimen slightly auit=102) hemolyzed EGFR (BEAKER) (test 84 mL/min/1.73 sq m ESTIMATED GFR IS NOT kbjt=8268) ACCURATE CREATININE CLEARANCE IN PREDICTING GLOMERULAR FILTRATION RATE. ESTIMATED GFR IS NOT APPLICABLE FOR DIALYSIS PATIENTS. URINALYSIS W/ [id number] 16:51:00 Test Item Value Reference Range Comments COLOR (BEAKER) (test eptb=746) Light Yellow CLARITY (BEAKER) (test yzrn=817) Clear SPECIFIC GRAVITY UA (BEAKER) (test gsvp=099) 1.015 1.001-1.035 PH UA (BEAKER) (test sbkh=744) 7.0 5.0-8.0 PROTEIN UA (BEAKER) (test uhgt=919) 20 mg/dL Negative GLUCOSE UA (BEAKER) (test ncqp=053) Negative Negative KETONES UA (BEAKER) (test cewg=586) Negative Negative BILIRUBIN UA (BEAKER) (test hsng=374) Negative Negative BLOOD UA (BEAKER) (test rmrc=929) Moderate Negative NITRITE UA (BEAKER) (test nsgx=844) Negative Negative LEUKOCYTE ESTERASE UA (BEAKER) (test jfqu=842) Large Negative UROBILINOGEN UA (BEAKER) (test jkmy=799) 0.2 mg/dL 0.2-1.0 RBC UA (BEAKER) (test mlta=285) 65 /HPF WBC UA (BEAKER) (test ryxd=415) 10 /HPF BACTERIA (BEAKER) (test camc=992) Few SQUAMOUS EPITHELIAL (BEAKER) (test xeuu=860) < /HPF SOURCE(BEAKER) (test uzrw=5897) CBC W/PLT COUNT & AUTO [id number] 16:48:00 Test Item Value Reference Range Comments WHITE BLOOD CELL COUNT (BEAKER) (test jdfk=017) 12.4 K/ L 3.5-10.5 RED BLOOD CELL COUNT (BEAKER) (test xnfk=175) 4.47 M/ L 3.93-5.22 HEMOGLOBIN (BEAKER) (test lwbu=991) 12.6 GM/DL 11.2-15.7 HEMATOCRIT (BEAKER) (test yplc=689) 39.4 % 34.1-44.9 MEAN CORPUSCULAR VOLUME (BEAKER) (test tgci=344) 88.1 fL 79.4-94.8 MEAN CORPUSCULAR HEMOGLOBIN (BEAKER) (test 28.2 pg 25.6-32.2 flry=669) MEAN CORPUSCULAR HEMOGLOBIN CONC (BEAKER) (test 32.0 GM/DL 32.2-35.5 sujk=302) RED CELL DISTRIBUTION WIDTH (BEAKER) (test 12.7 % 11.7-14.4 emgi=122) PLATELET COUNT (BEAKER) (test ximt=984) 307 K/CU MM 150-450 MEAN PLATELET VOLUME (BEAKER) (test azez=453) 9.3 fL 9.4-12.3 NUCLEATED RED BLOOD CELLS (BEAKER) (test 0 /100 WBC 0-0 mjqx=280) NEUTROPHILS RELATIVE PERCENT (BEAKER) (test 64 % hmcb=322) LYMPHOCYTES RELATIVE PERCENT (BEAKER) (test 24 % gyhi=998) MONOCYTES RELATIVE PERCENT (BEAKER) (test 7 % qnvc=640) EOSINOPHILS RELATIVE PERCENT (BEAKER) (test 4 % whwb=157) BASOPHILS RELATIVE PERCENT (BEAKER) (test 1 % gysd=459) NEUTROPHILS ABSOLUTE COUNT (BEAKER) (test 7.94 K/ L 1.56-6.13 xtby=430) LYMPHOCYTES ABSOLUTE COUNT (BEAKER) (test 3.03 K/ L 1.18-3.74 mtvv=844) MONOCYTES ABSOLUTE COUNT (BEAKER) (test 0.81 K/ L 0.24-0.36 ipas=357) EOSINOPHILS ABSOLUTE COUNT (BEAKER) (test 0.47 K/ L 0.04-0.36 gwez=439) BASOPHILS ABSOLUTE COUNT (BEAKER) (test 0.11 K/ L 0.01-0.08 jewr=111) IMMATURE GRANULOCYTES-RELATIVE PERCENT (BEAKER) 0 % 0-1 (test hudc=7296) SURGICALLY OBTAINED CULTURE + GRAM [id number] 08:48:00 Test Item Value Reference Range Comments CULTURE (BEAKER) (test ouco=8154) No growth GRAM STAIN RESULT (BEAKER) (test No WBCs ohdd=2878) GRAM STAIN RESULT (BEAKER) (test No organisms seen iwpp=15941) SPIN/CONCENTRATION [id number] 15:38:00 Test Item Value Reference Range Comments CONCENTRATION CHARGED (BEAKER) (test lnco=3534) Done SPIN/CONCENTRATION [id number] 15:37:00 Test Item Value Reference Range Comments CONCENTRATION CHARGED (BEAKER) (test rqyl=1719) Done URINE [id number] 11:23:00 Test Item Value Reference Range Comments CULTURE (BEAKER) (test dqwb=1965) No growth CBC W/PLT COUNT & AUTO [id number] 08:27:00 Test Item Value Reference Range Comments WHITE BLOOD CELL COUNT (BEAKER) (test ikwq=745) 9.9 K/ L 3.5-10.5 RED BLOOD CELL COUNT (BEAKER) (test djhq=536) 4.09 M/ L 3.93-5.22 HEMOGLOBIN (BEAKER) (test ystv=222) 11.5 GM/DL 11.2-15.7 HEMATOCRIT (BEAKER) (test eful=981) 35.9 % 34.1-44.9 MEAN CORPUSCULAR VOLUME (BEAKER) (test grla=420) 87.8 fL 79.4-94.8 MEAN CORPUSCULAR HEMOGLOBIN (BEAKER) (test 28.1 pg 25.6-32.2 ycmp=502) MEAN CORPUSCULAR HEMOGLOBIN CONC (BEAKER) (test 32.0 GM/DL 32.2-35.5 lxae=135) RED CELL DISTRIBUTION WIDTH (BEAKER) (test 12.9 % 11.7-14.4 qjrt=990) PLATELET COUNT (BEAKER) (test molj=840) 209 K/CU MM 150-450 MEAN PLATELET VOLUME (BEAKER) (test pyam=481) 9.6 fL 9.4-12.3 NUCLEATED RED BLOOD CELLS (BEAKER) (test 0 /100 WBC 0-0 yile=770) NEUTROPHILS RELATIVE PERCENT (BEAKER) (test 63 % amnn=731) LYMPHOCYTES RELATIVE PERCENT (BEAKER) (test 29 % pagi=979) MONOCYTES RELATIVE PERCENT (BEAKER) (test 6 % ubdk=392) EOSINOPHILS RELATIVE PERCENT (BEAKER) (test 2 % nkqd=778) BASOPHILS RELATIVE PERCENT (BEAKER) (test 0 % cjvq=402) NEUTROPHILS ABSOLUTE COUNT (BEAKER) (test 6.19 K/ L 1.56-6.13 kzfz=244) LYMPHOCYTES ABSOLUTE COUNT (BEAKER) (test 2.81 K/ L 1.18-3.74 etzb=366) MONOCYTES ABSOLUTE COUNT (BEAKER) (test 0.61 K/ L 0.24-0.36 xoyf=396) EOSINOPHILS ABSOLUTE COUNT (BEAKER) (test 0.19 K/ L 0.04-0.36 oghj=063) BASOPHILS ABSOLUTE COUNT (BEAKER) (test 0.03 K/ L 0.01-0.08 bwdq=796) IMMATURE GRANULOCYTES-RELATIVE PERCENT (BEAKER) 0 % 0-1 (test umyi=9317) BASIC METABOLIC [id number] 06:20:00 Test Item Value Reference Range Comments SODIUM (BEAKER) (test 141 meq/L 136-145 cnso=214) POTASSIUM (BEAKER) (test 4.0 meq/L 3.5-5.1 smki=819) CHLORIDE (BEAKER) (test 111 meq/L 98-107 aitv=189) CO2 (BEAKER) (test 22 meq/L 22-29 awlp=566) BLOOD UREA NITROGEN 10 mg/dL 7-21 (BEAKER) (test qanp=798) CREATININE (BEAKER) (test 0.77 mg/dL 0.57-1.25 qbjg=466) GLUCOSE RANDOM (BEAKER) 85 mg/dL 70-105 (test otri=216) CALCIUM (BEAKER) (test 8.5 mg/dL 8.4-10.2 cwaq=980) EGFR (BEAKER) (test mL/min/1.73 sq m INSUFFICIENT CLINICAL DATA euoj=0024) TO CALCULATE ESTIMATED GFR. FL, COMMUNICATIONS SUPERVISOR IN OR/30 MINUTE [id number] 19:39:00Reason for exam:-> Cystoscopy and stent placementFINAL REPORT Examination: Retrograde pyelography 38 fluoroscopic spot views were obtained during the procedure by the ordering service. Images are nondiagnostic as no radiologist was present at the time of imaging. Fluoroscopic time was not provided. Please see the procedurereport for details. Signed: Magnus Paez MDReport Verified Date/Time: 06/28/2018 19:39:39 Reading Location: [address] Reading Room Electronically signed by: MAGNUS PAEZ M.D. on 07:39 PMURINALYSIS W/ REFLEX URINE [id number] 17:11:00 Test Item Value Reference Range Comments COLOR (BEAKER) (test ldvg=578) Yellow CLARITY (BEAKER) (test stxi=042) Hazy SPECIFIC GRAVITY UA (BEAKER) (test zngx=216) 1.015 1.001-1.035 PH UA (BEAKER) (test xdpj=310) 6.5 5.0-8.0 PROTEIN UA (BEAKER) (test wsqj=167) 20 mg/dL Negative GLUCOSE UA (BEAKER) (test oazl=961) Negative Negative KETONES UA (BEAKER) (test cjhc=703) 20 mg/dL Negative BILIRUBIN UA (BEAKER) (test fayi=687) Negative Negative BLOOD UA (BEAKER) (test urga=407) Large Negative NITRITE UA (BEAKER) (test fjbm=787) Negative Negative LEUKOCYTE ESTERASE UA (BEAKER) (test tblh=997) Large Negative UROBILINOGEN UA (BEAKER) (test yoqb=242) 0.2 mg/dL 0.2-1.0 RBC UA (BEAKER) (test wznn=072) 18 /HPF WBC UA (BEAKER) (test vdyl=185) 6 /HPF BACTERIA (BEAKER) (test mgeo=169) Many SQUAMOUS EPITHELIAL (BEAKER) (test ksng=652) 6 /HPF SOURCE(BEAKER) (test rwjx=2308) SCREEN, [id number] 17:06:00 Test Item Value Reference Range Comments TEST URINE (BEAKER) (test yjvx=496) Negative
[2018-10-03] MEDS ORDERED: ACETAMINOPHEN 500 MG TAB ONE (13:18)
--- NOTE | 2018-10-03 13:51 | ER ---
Nurse's Notes [facility] Name: Charlene Kramer Age: 33 yrs Sex: Female : 1985 Arrival Date: 10/03/2018 Time: 11:45 Bed 25 Private MD: Diagnosis: Headache Presentation: 10/03 12:18 Presenting complaint: Patient states: left sided headache that started yesterday, took iw Tylenol at home but hasn't resolved, 5/10 pain, pt is , has not had US to verify how many weeks, thinks she may be 10-11 weeks. Transition of care: patient was not received from another setting of care. Onset of symptoms was October 02, 2018. Risk Assessment: Do you want to hurt yourself or someone else? Patient reports no desire to harm self or others. Initial Sepsis Screen: Does the patient meet any 2 criteria? No. Patient's initial sepsis screen is negative. Does the patient have a suspected source of infection? No. Patient's initial sepsis screen is negative. Care prior to arrival: None. 12:18 Method Of Arrival: Ambulatory iw 12:18 Acuity: RONY 3 iw Triage Assessment: 13:07 Headache History: Denies prior headaches. General: Appears in no apparent distress. mg2 comfortable, Behavior is calm, cooperative. Pain: Complains of pain in head Also complains of no other associated symptoms. 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 - Social history:: Smoking status: Patient/guardian denies using tobacco. - Ebola Screening: : Patient negative for fever greater than or equal to 101.5 degrees Fahrenheit, and additional compatible Ebola Virus Disease symptoms Patient denies exposure to infectious person Patient denies travel to an Ebola-affected area in the 21 days before illness onset No symptoms or risks identified at this time. Screenin:06 Abuse screen: Denies threats or abuse. Denies injuries from another. Nutritional mg2 screening: No deficits noted. Tuberculosis screening: No symptoms or risk factors identified. Fall Risk None identified. Assessment: 13:05 General: Appears in no apparent distress. comfortable, Behavior is calm, cooperative. mg2 Pain: Complains of pain in head Pain does not radiate. Pain currently is 5 out of 10 on a pain scale. Quality of pain is described as aching, Pain began gradually, 1 day ago. Is intermittent. Neuro: Level of Consciousness is awake, alert, obeys commands, Oriented to person, place, time, situation, Reports headache in left frontal area. Cardiovascular: Capillary refill < 3 seconds Patient's skin is warm and dry. Respiratory: Airway is patent Respiratory effort is even, unlabored, Respiratory pattern is regular, symmetrical. GI: No signs and/or symptoms were reported involving the gastrointestinal system. : No signs and/or symptoms were reported regarding the genitourinary system. EENT: No signs and/or symptoms were reported regarding the EENT system. Derm: Skin is intact, is healthy with good turgor, Skin is pink, warm \T\ dry. normal. Musculoskeletal: Circulation, motion, and sensation intact. Capillary refill < 3 seconds. 13:56 Reassessment: Patient denies pain at this time. Patient states feeling better. Patient mg2 states symptoms have improved. Vital Signs: 12:22 BP 112 / 83; Pulse 69; Resp 16; Temp 98.2; Pulse Ox 100% on R/A; iw 13:08 BP 105 / 71; Pulse 62; Resp 18; Pulse Ox 100% on R/A; Pain 5/10; mg2 13:56 BP 110 / 70; Pulse 78; Resp 18; Temp 98; Pulse Ox 100% on R/A; Pain 0/10; mg2 ED Course: 11:45 Patient arrived in ED. as 12:20 Triage completed. iw 12:23 Arm band placed on. iw 12:31 Efra Sanchez PA is PHCP. jr8 12:31 Juan Wallis MD is Attending Physician. jr8 12:35 Deshawn Lamb RN is Primary Nurse. mg2 13:07 No provider procedures requiring assistance completed. Patient did not have IV access mg2 during this emergency room visit. 13:08 Patient has correct armband on for positive identification. mg2 Administered Medications: 13:05 Drug: Tylenol 1000 mg Route: PO; mg2 13:57 Follow up: Response: No adverse reaction; Marked relief of symptoms; Pain is decreased mg2 Outcome: 13:49 Discharge ordered by MD. williamson 13:56 Discharged to home ambulatory. mg2 13:56 Condition: stable 13:56 Discharge instructions given to patient, Instructed on discharge instructions, follow up and referral plans. Demonstrated understanding of instructions, follow-up care. 13:56 Patient left the ED. mg2 Signatures: Dayanara Barrientos Irene, RN RN iw Efra Sanchez PA PA jr8 Deshawn Lamb RN RN mg2 Corrections: (The following items were deleted from the chart) 13:09 12:23 Home Meds: None; iw mg2
--- NOTE | 2018-10-03 13:51 | EDPHYS ---
Physician Documentation [facility] Name: Charlene Kramer Age: 33 yrs Sex: Female : 1985 Arrival Date: 10/03/2018 Time: 11:45 Bed 25 Private MD: ED Physician Juan Wallis HPI: 10/03 14:11 This 33 yrs old Female presents to ER via Ambulatory with complaints of jr8 Headache. 14:11 The patient complains of pain to the left moravian. The patient describes the headache as jr8 throbbing. Onset: The symptoms/episode began/occurred acutely, yesterday. Associated signs and symptoms: The patient has no apparent associated signs or symptoms. Severity of symptoms: At its worst the pain was mild, in the emergency department the pain is unchanged. The patient has experienced a previous episode. The patient has not recently seen a physician. currently . Was told to come to ED for evaluation . 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 - Social history:: Smoking status: Patient/guardian denies using tobacco. - Ebola Screening: : Patient negative for fever greater than or equal to 101.5 degrees Fahrenheit, and additional compatible Ebola Virus Disease symptoms Patient denies exposure to infectious person Patient denies travel to an Ebola-affected area in the 21 days before illness onset No symptoms or risks identified at this time. ROS: 14:11 Eyes: Negative for injury, pain, redness, and discharge, ENT: Negative for injury, jr8 pain, and discharge, Neck: Negative for injury, pain, and swelling, Cardiovascular: Negative for chest pain, palpitations, and edema, Respiratory: Negative for shortness of breath, cough, wheezing, and pleuritic chest pain, Abdomen/GI: Negative for abdominal pain, nausea, vomiting, diarrhea, and constipation, Back: Negative for injury and pain, MS/Extremity: Negative for injury and deformity, Skin: Negative for injury, rash, and discoloration. 14:11 Neuro: Positive for headache. Exam: 14:11 Eyes: Pupils equal round and reactive to light, extra-ocular motions intact. Lids and jr8 lashes normal. Conjunctiva and sclera are non-icteric and not injected. Cornea within normal limits. Periorbital areas with no swelling, redness, or edema. ENT: Nares patent. No nasal discharge, no septal abnormalities noted. Tympanic membranes are normal and external auditory canals are clear. Oropharynx with no redness, swelling, or masses, exudates, or evidence of obstruction, uvula midline. Mucous membranes moist. Neck: Trachea midline, no thyromegaly or masses palpated, and no cervical lymphadenopathy. Supple, full range of motion without nuchal rigidity, or vertebral point tenderness. No Meningismus. Cardiovascular: Regular rate and rhythm with a normal S1 and S2. No gallops, murmurs, or rubs. Normal PMI, no JVD. No pulse deficits. Respiratory: Lungs have equal breath sounds bilaterally, clear to auscultation and percussion. No rales, rhonchi or wheezes noted. No increased work of breathing, no retractions or nasal flaring. Abdomen/GI: Soft, non-tender, with normal bowel sounds. No distension or tympany. No guarding or rebound. No evidence of tenderness throughout. Back: No spinal tenderness. No costovertebral tenderness. Full range of motion. Skin: Warm, dry with normal turgor. Normal color with no rashes, no lesions, and no evidence of cellulitis. MS/ Extremity: Pulses equal, no cyanosis. Neurovascular intact. Full, normal range of motion. Neuro: Awake and alert, GCS 15, oriented to person, place, time, and situation. Cranial nerves II-XII grossly intact. Motor strength 5/5 in all extremities. Sensory grossly intact. Cerebellar exam normal. Normal gait. Vital Signs: 12:22 BP 112 / 83; Pulse 69; Resp 16; Temp 98.2; Pulse Ox 100% on R/A; iw 13:08 BP 105 / 71; Pulse 62; Resp 18; Pulse Ox 100% on R/A; Pain 5/10; mg2 13:56 BP 110 / 70; Pulse 78; Resp 18; Temp 98; Pulse Ox 100% on R/A; Pain 0/10; mg2 MDM: 12:32 Patient medically screened. jr8 13:49 Data reviewed: vital signs, nurses notes, and as a result, I will discharge patient. jr8 Data interpreted: Pulse oximetry: on room air is 100 %. Interpretation: normal. Counseling: I had a detailed discussion with the patient and/or guardian regarding: the historical points, exam findings, and any diagnostic results supporting the discharge/admit diagnosis, the need for outpatient follow up, a family practitioner, to return to the emergency department if symptoms worsen or persist or if there are any questions or concerns that arise at home. Response to treatment: the patient's symptoms have resolved after treatment. Administered Medications: 13:05 Drug: Tylenol 1000 mg Route: PO; mg2 13:57 Follow up: Response: No adverse reaction; Marked relief of symptoms; Pain is decreased mg2 Disposition: 16:53 Co-signature as Attending Physician, Juan Wallis MD. Disposition: 10/03/18 13:49 Discharged to Home. Impression: Headache. - Condition is Stable. - Discharge Instructions: Migraine Headache. - Medication Reconciliation Form, Thank You Letter, Antibiotic Education, Prescription Opioid Use form. - Follow up: Private Physician; When: 5 - 6 days; Reason: Recheck today's complaints, Continuance of care, Re-evaluation by your physician. - Problem is new. - Symptoms have improved. Signatures: Brandy Garcia RN RN Efra Sanchez PA PA jr8 Juan Wallis MD MD Deshawn Lamb RN RN mg2 Corrections: (The following items were deleted from the chart) 13:09 12:23 Home Meds: None; mg2 13:56 13:49 10/03/2018 13:49 Discharged to Home. Impression: Headache. Condition is Stable. mg2 Forms are Medication Reconciliation Form, Thank You Letter, Antibiotic Education, Prescription Opioid Use. Follow up: Private Physician; When: 5 - 6 days; Reason: Recheck today's complaints, Continuance of care, Re-evaluation by your physician. Problem is new. Symptoms have improved. jr8
== END 2018-10-03 13:56 | disposition home or self-care (01) ==
LOC: ER 11:42
DX: O26.891 Other specified pregnancy related conditions, first trimester (principal); R51 Headache
CPT/HCPCS: 99283

== ENCOUNTER 2019-04-16 00:56 | Inpatient (IN) | payer OTHER ==
--- OUTSIDE RECORDS SUMMARY | 2019-04-16 04:27 | XMS REPORT ---
:1985 Author Organization [facility] Address [facility] [address] Dr. Garcia [address] [place] [id number] Care Team Providers Name Role Phone PERNELL [...] Value Reference Range Comments CULTURE (BEAKER) (test malj=8668) No acid-fast bacilli isolated in 42 days AFB SMEAR (BEAKER) (test kbhn=824) No acid fast bacilli seen AFB CULTURE + [id number] 10:28:00 Test Item Value Reference Range Comments CULTURE (BEAKER) (test No acid-fast bacilli isolated ivhx=3607) in 42 days AFB SMEAR (BEAKER) (test No acid fast bacilli seen oycu=199) FUNGUS CULTURE + [id number] 17:20:00 Test Item Value Reference Range Comments CULTURE (BEAKER) (test No fungus isolated in 28 days xtyd=9754) FUNGUS SMEAR (BEAKER) (test No fungi seen rtmk=3301) FUNGUS CULTURE + [id number] 17:20:00 Test Item Value Reference Range Comments CULTURE (BEAKER) (test No fungus isolated in 28 days syqt=7747) FUNGUS SMEAR (BEAKER) (test No fungi seen wniz=4794) [place], [employer] IN OR/30 MINUTE [id number] 15:08:00Reason for exam:-> cystoscopy, right ureteroscopy, possible laser lithotripsy vs stent exchangeFINAL REPORT TECHNICAL NOTE-C-ARM FLUOROSCOPY C- arm utilized during urologic procedure. No interpretation rendered. Fluoroscopy time 18.2 seconds. Cumulative dose 241.6 mrad. Signed: Lewis Valdes MDReport Verified Date/Time: 07/23/2018 15:08:17 Reading Location: [address] Radiology Reading Room Electronically signed by: LEWIS VALDES on 2018 03:08 PMPOCT-HEMOGLOBIN [id number] 12:25:00 Test Item Value Reference Range Comments POC-HEMOGLOBIN METER 12.3 g/dL 12.0-15.[address] [facility] [address] (BEAKER) (test xlzt=0066) [facility] [address] URINE [id number] 09:31:00 Test Item Value Reference Range Comments CULTURE (BEAKER) (test fkjp=8266) >100,000 col/mL skin alondra HCG, QUANTITATIVE, [id number] 17:15:00 Test Item Value Reference Range Comments GONADOTROPIN, CHORIONIC (HCG) QUANT (BEAKER) (test < mIU/mL 0-10 quoj=486) Non- Females: <10 mIU/mL Females: Gestation Age Reference Range(mIU/mL) 0.2-1 Week 5-50 1-2 Weeks 50-500 2-3 Weeks 100-5,000 3-4Weeks 500-10,000 4 -5 Weeks 1,000-50,000 5-6 Weeks 10,000-100,000 6-8 Weeks 15,000-200,000 2-3 Months 10,000-100,000COMPREHENSIVE METABOLIC [id number] 17:14:00 Test Item Value Reference Range Comments TOTAL PROTEIN (BEAKER) 7.9 gm/dL 6.0-8.3 Specimen slightly (test pxgh=660) hemolyzed ALBUMIN (BEAKER) (test 4.4 g/dL 3.5-5.0 Specimen slightly xzwb=2620) hemolyzed ALKALINE PHOSPHATASE 94 U/L 40-150 (BEAKER) (test indx=346) BILIRUBIN TOTAL (BEAKER) 0.2 mg/dL 0.2-1.2 Specimen slightly (test jaku=571) hemolyzed SODIUM (BEAKER) (test 141 meq/L 136-145 vkkc=972) POTASSIUM (BEAKER) (test 4.6 meq/L 3.5-5.1 Specimen slightly hoxb=804) hemolyzed CHLORIDE (BEAKER) (test 106 meq/L 98-107 fwxy=117) CO2 (BEAKER) (test 26 meq/L 22-29 ykwh=925) BLOOD UREA NITROGEN 17 mg/dL 7-21 (BEAKER) (test chdx=290) CREATININE (BEAKER) (test 0.79 mg/dL 0.57-1.25 Specimen slightly wfsn=074) hemolyzed GLUCOSE RANDOM (BEAKER) 76 mg/dL 70-105 (test bqzg=149) CALCIUM (BEAKER) (test 9.8 mg/dL 8.4-10.2 epep=575) AST (SGOT) (BEAKER) (test 34 U/L 5-34 Specimen slightly hiio=486) hemolyzed ALT (SGPT) (BEAKER) (test 53 U/L 6-55 Specimen slightly jkum=137) hemolyzed EGFR (BEAKER) (test 84 mL/min/1.73 sq m ESTIMATED GFR IS NOT uoet=4428) ACCURATE CREATININE CLEARANCE IN PREDICTING GLOMERULAR FILTRATION RATE. ESTIMATED GFR IS NOT APPLICABLE FOR DIALYSIS PATIENTS. URINALYSIS W/ [id number] 16:51:00 Test Item Value Reference Range Comments COLOR (BEAKER) (test artv=253) Light Yellow CLARITY (BEAKER) (test fqzc=959) Clear SPECIFIC GRAVITY UA (BEAKER) (test mbli=041) 1.015 1.001-1.035 PH UA (BEAKER) (test ryhm=551) 7.0 5.0-8.0 PROTEIN UA (BEAKER) (test tikf=336) 20 mg/dL Negative GLUCOSE UA (BEAKER) (test wxaa=198) Negative Negative KETONES UA (BEAKER) (test hvlc=795) Negative Negative BILIRUBIN UA (BEAKER) (test ibfs=919) Negative Negative BLOOD UA (BEAKER) (test btai=729) Moderate Negative NITRITE UA (BEAKER) (test gsle=280) Negative Negative LEUKOCYTE ESTERASE UA (BEAKER) (test nzao=321) Large Negative UROBILINOGEN UA (BEAKER) (test toxj=083) 0.2 mg/dL 0.2-1.0 RBC UA (BEAKER) (test ghzm=028) 65 /HPF WBC UA (BEAKER) (test tigw=615) 10 /HPF BACTERIA (BEAKER) (test vlol=980) Few SQUAMOUS EPITHELIAL (BEAKER) (test mrll=437) < /HPF SOURCE(BEAKER) (test yerf=5422) CBC W/PLT COUNT & AUTO [id number] 16:48:00 Test Item Value Reference Range Comments WHITE BLOOD CELL COUNT (BEAKER) (test ywas=911) 12.4 K/ L 3.5-10.5 RED BLOOD CELL COUNT (BEAKER) (test xuqz=725) 4.47 M/ L 3.93-5.22 HEMOGLOBIN (BEAKER) (test cwdr=255) 12.6 GM/DL 11.2-15.7 HEMATOCRIT (BEAKER) (test estn=712) 39.4 % 34.1-44.9 MEAN CORPUSCULAR VOLUME (BEAKER) (test vsae=192) 88.1 fL 79.4-94.8 MEAN CORPUSCULAR HEMOGLOBIN (BEAKER) (test 28.2 pg 25.6-32.2 ltcm=752) MEAN CORPUSCULAR HEMOGLOBIN CONC (BEAKER) (test 32.0 GM/DL 32.2-35.5 ozzx=892) RED CELL DISTRIBUTION WIDTH (BEAKER) (test 12.7 % 11.7-14.4 ufsb=127) PLATELET COUNT (BEAKER) (test kjgt=617) 307 K/CU MM 150-450 MEAN PLATELET VOLUME (BEAKER) (test jyoz=700) 9.3 fL 9.4-12.3 NUCLEATED RED BLOOD CELLS (BEAKER) (test 0 /100 WBC 0-0 ptns=293) NEUTROPHILS RELATIVE PERCENT (BEAKER) (test 64 % xpar=397) LYMPHOCYTES RELATIVE PERCENT (BEAKER) (test 24 % yfhb=081) MONOCYTES RELATIVE PERCENT (BEAKER) (test 7 % qrza=867) EOSINOPHILS RELATIVE PERCENT (BEAKER) (test 4 % bhbh=654) BASOPHILS RELATIVE PERCENT (BEAKER) (test 1 % wnkh=876) NEUTROPHILS ABSOLUTE COUNT (BEAKER) (test 7.94 K/ L 1.56-6.13 quxv=411) LYMPHOCYTES ABSOLUTE COUNT (BEAKER) (test 3.03 K/ L 1.18-3.74 krud=965) MONOCYTES ABSOLUTE COUNT (BEAKER) (test 0.81 K/ L 0.24-0.36 pwal=688) EOSINOPHILS ABSOLUTE COUNT (BEAKER) (test 0.47 K/ L 0.04-0.36 heef=667) BASOPHILS ABSOLUTE COUNT (BEAKER) (test 0.11 K/ L 0.01-0.08 yorc=979) IMMATURE GRANULOCYTES-RELATIVE PERCENT (BEAKER) 0 % 0-1 (test yebn=0568) SURGICALLY OBTAINED CULTURE + GRAM [id number] 08:48:00 Test Item Value Reference Range Comments CULTURE (BEAKER) (test njpe=2536) No growth GRAM STAIN RESULT (BEAKER) (test No WBCs bxmj=2980) GRAM STAIN RESULT (BEAKER) (test No organisms seen xumc=22330) SPIN/CONCENTRATION [id number] 15:38:00 Test Item Value Reference Range Comments CONCENTRATION CHARGED (BEAKER) (test uedv=4000) Done SPIN/CONCENTRATION [id number] 15:37:00 Test Item Value Reference Range Comments CONCENTRATION CHARGED (BEAKER) (test jgar=5183) Done URINE [id number] 11:23:00 Test Item Value Reference Range Comments CULTURE (BEAKER) (test vkhp=5962) No growth CBC W/PLT COUNT & AUTO [id number] 08:27:00 Test Item Value Reference Range Comments WHITE BLOOD CELL COUNT (BEAKER) (test mufv=720) 9.9 K/ L 3.5-10.5 RED BLOOD CELL COUNT (BEAKER) (test aetr=256) 4.09 M/ L 3.93-5.22 HEMOGLOBIN (BEAKER) (test mrmw=393) 11.5 GM/DL 11.2-15.7 HEMATOCRIT (BEAKER) (test oxen=820) 35.9 % 34.1-44.9 MEAN CORPUSCULAR VOLUME (BEAKER) (test xbfl=881) 87.8 fL 79.4-94.8 MEAN CORPUSCULAR HEMOGLOBIN (BEAKER) (test 28.1 pg 25.6-32.2 manl=318) MEAN CORPUSCULAR HEMOGLOBIN CONC (BEAKER) (test 32.0 GM/DL 32.2-35.5 aivg=021) RED CELL DISTRIBUTION WIDTH (BEAKER) (test 12.9 % 11.7-14.4 sivr=578) PLATELET COUNT (BEAKER) (test szwr=502) 209 K/CU MM 150-450 MEAN PLATELET VOLUME (BEAKER) (test foir=026) 9.6 fL 9.4-12.3 NUCLEATED RED BLOOD CELLS (BEAKER) (test 0 /100 WBC 0-0 eovp=470) NEUTROPHILS RELATIVE PERCENT (BEAKER) (test 63 % zhyq=164) LYMPHOCYTES RELATIVE PERCENT (BEAKER) (test 29 % xxwr=720) MONOCYTES RELATIVE PERCENT (BEAKER) (test 6 % zksx=603) EOSINOPHILS RELATIVE PERCENT (BEAKER) (test 2 % rtfk=945) BASOPHILS RELATIVE PERCENT (BEAKER) (test 0 % anqx=711) NEUTROPHILS ABSOLUTE COUNT (BEAKER) (test 6.19 K/ L 1.56-6.13 fecc=775) LYMPHOCYTES ABSOLUTE COUNT (BEAKER) (test 2.81 K/ L 1.18-3.74 edvf=049) MONOCYTES ABSOLUTE COUNT (BEAKER) (test 0.61 K/ L 0.24-0.36 whsy=984) EOSINOPHILS ABSOLUTE COUNT (BEAKER) (test 0.19 K/ L 0.04-0.36 lbze=951) BASOPHILS ABSOLUTE COUNT (BEAKER) (test 0.03 K/ L 0.01-0.08 fswi=044) IMMATURE GRANULOCYTES-RELATIVE PERCENT (BEAKER) 0 % 0-1 (test omts=9195) BASIC METABOLIC [id number] 06:20:00 Test Item Value Reference Range Comments SODIUM (BEAKER) (test 141 meq/L 136-145 abes=516) POTASSIUM (BEAKER) (test 4.0 meq/L 3.5-5.1 tzqr=016) CHLORIDE (BEAKER) (test 111 meq/L 98-107 mdmk=079) CO2 (BEAKER) (test 22 meq/L 22-29 ssvk=305) BLOOD UREA NITROGEN 10 mg/dL 7-21 (BEAKER) (test jjri=077) CREATININE (BEAKER) (test 0.77 mg/dL 0.57-1.25 fsjs=149) GLUCOSE RANDOM (BEAKER) 85 mg/dL 70-105 (test auju=649) CALCIUM (BEAKER) (test 8.5 mg/dL 8.4-10.2 fmdh=339) EGFR (BEAKER) (test mL/min/1.73 sq m INSUFFICIENT CLINICAL DATA stxk=0304) TO CALCULATE ESTIMATED GFR. [place], [employer] IN OR/30 MINUTE [id number] 19:39:00Reason for exam:-> Cystoscopy and stent placementFINAL REPORT Examination: Retrograde pyelography 38 fluoroscopic spot views were obtained during the procedure by the ordering service. Images are nondiagnostic as no radiologist was present at the time of imaging. Fluoroscopic time was not provided. Please see the procedurereport for details. Signed: Gabino Paez MDReport Verified Date/Time: 06/28/2018 19:39:39 Reading Location: [address] Reading Room Electronically signed by: GABINO PAEZ M.D. on 07:39 PMURINALYSIS W/ REFLEX URINE [id number] 17:11:00 Test Item Value Reference Range Comments COLOR (BEAKER) (test kgvv=544) Yellow CLARITY (BEAKER) (test yimh=572) Hazy SPECIFIC GRAVITY UA (BEAKER) (test ixdd=264) 1.015 1.001-1.035 PH UA (BEAKER) (test aqhh=556) 6.5 5.0-8.0 PROTEIN UA (BEAKER) (test eqnj=180) 20 mg/dL Negative GLUCOSE UA (BEAKER) (test ksaq=403) Negative Negative KETONES UA (BEAKER) (test ubhg=690) 20 mg/dL Negative BILIRUBIN UA (BEAKER) (test zpms=138) Negative Negative BLOOD UA (BEAKER) (test nwmf=434) Large Negative NITRITE UA (BEAKER) (test sbcf=956) Negative Negative LEUKOCYTE ESTERASE UA (BEAKER) (test stjq=567) Large Negative UROBILINOGEN UA (BEAKER) (test kciv=046) 0.2 mg/dL 0.2-1.0 RBC UA (BEAKER) (test ttcg=551) 18 /HPF WBC UA (BEAKER) (test vhlx=620) 6 /HPF BACTERIA (BEAKER) (test tzqc=217) Many SQUAMOUS EPITHELIAL (BEAKER) (test ircs=111) 6 /HPF SOURCE(BEAKER) (test mctp=0476) SCREEN, [id number] 17:06:00 Test Item Value Reference Range Comments TEST URINE (BEAKER) (test tsvc=586) Negative
[2019-04-16] MEDS ORDERED: PENICILLIN 5 MU in NA CHLORIDE 0.9% 100 ML IV ONE (04:37)
[2019-04-16] MEDS ORDERED: PROMETHAZINE INJ 25 MG/ML AMP IM PRN (04:37)
[2019-04-16] MEDS ORDERED: MEPERIDINE HCL 25 MG/0.5 ML IV PRN (04:37)
[2019-04-16] MEDS ORDERED: CARBOPROST TROME 250 MCG/ML IM PRN (04:37)
[2019-04-16] MEDS ORDERED: BUTORPHANOL 1 MG/ML INJ IV PRN (04:37)
[2019-04-16] MEDS ORDERED: Ringers Lactate 1,000 ML IV PRN (04:37)
[2019-04-16] MEDS ORDERED: METHYLERGONOVINE 0.2MG/ML AMP IM PRN (04:37)
[2019-04-16] MEDS ORDERED: Ringers Lactate 1,000 ML IV SCH (05:00)
[2019-04-16] MEDS ORDERED: OXYTOCIN/LR 20 UNIT/1,000 ML BAG IV SCH ×2 (05:00→14:00)
[2019-04-16 05:36] VITALS: BMI 31.6
[2019-04-16 05:38] LABS: Urine Appearance CLEAR; Urine Bilirubin NEGATIVE (NEG); Urine Blood NEGATIVE (NEG); Urine Color YELLOW; Urine Glucose NEGATIVE (NEG); Urine Protein NEGATIVE (NEG); Urine Specific Gravity 1.015 (1.005-1.030); Urine Urobilinogen 0.2 mg/dL (0.2-1.0); Urine pH 6.5 (5.0-7.0)
[2019-04-16 05:40] LABS: Absolute Lymphocytes (CBC) 2.4 K/uL (0.7-4.9); Basophils % 0.6 % (0-1.3); Hematocrit 33.1 % (36.0-45.0); MPV 9.2 fL (7.6-11.3); RBC Red Blood Cell Count 3.94 M/uL (3.86-4.86)
[2019-04-16 06:01] LABS: Urine Bacteria <20 /HPF (<20); Urine Culture Reflex Order NOT NEEDED; Urine RBC <5 /HPF (NONE SEEN)
[2019-04-16] MEDS ORDERED: INFLUENZA VACCINE (for 3y+) 0.5 ML DOSE IMVAC ONE (08:00)
[2019-04-16] MEDS ORDERED: PENICILLIN 2.5 MU in NA CHLORIDE 0.9% 100 ML IV SCH (09:00)
[2019-04-16] MEDS ORDERED: BUPIVACAINE 0.25% PF 30 ML VIAL ONE (12:30)
[2019-04-16] MEDS ORDERED: FENTANYL CITR 100 MCG/2 ML ONE (12:32)
[2019-04-16] MEDS ORDERED: FENTANYL/BUPIVACAINE/NS/PF 200 MCG/100 ML BAG EP ONE (12:56)
[2019-04-16] MEDS ORDERED: BISACODYL 10 MG RECTAL SUPP RECT PRN (13:39)
[2019-04-16] MEDS ORDERED: ACETAMINOPHEN 500 MG TAB PO PRN (13:39)
[2019-04-16] MEDS ORDERED: DIPHENHYDRAMINE 25 MG TAB/CAP PO PRN (13:39)
[2019-04-16] MEDS ORDERED: Oxycodone HCl/Acetaminophen 1 TAB TAB PO PRN (13:39)
[2019-04-16] MEDS ORDERED: IBUPROFEN 600 MG TAB PO PRN (13:39)
[2019-04-16] MEDS ORDERED: DOCUSATE NA/SENNA CONC 1 TAB PO PRN (13:39)
--- NOTE | 2019-04-16 14:20 | PREOPHP ---
Date of Admission: 04/16/2019 33-year-old 4, para 3, at 39 weeks. Rh negative, has received RhoGAM during the . Immune to Rubella. Positive beta strep screen. Patient has received her first dose of penicillin. Full labor talk given. Patient is 2 cm but the cervix is slightly posterior and the baby is still hi gher than comfortable for membrane rupture. We will check again in about 45 minutes to an hour and s ee if the baby comes down. If not, we will continue to administer oxytocin until the baby does come down or spontaneous rupture occurs. Full discussion with patient and family. Anticipate delivery so metime later today. COOPER/TAL Voice ID: [id number]
--- NOTE | 2019-04-16 14:20 | PN ---
Patient is having regular contractions, now starting to feel them. She is almost 3 cm. The baby wit h contraction was down against the cervix, but in between still goes up, so we will wait a little bit longer to rupture membranes. She knows that if they rupture on their own, she is to notify the nurs e immediately. COOPER/TAL Voice ID: [id number] Report ID: [id number]
[2019-04-16] MEDS ORDERED: Ringers Lactate 2,000 ML IV ONE (14:36)
[2019-04-16] MEDS ORDERED: IBUPROFEN 600 MG TAB ONE (19:27)
[2019-04-16] MEDS ORDERED: IBUPROFEN 200 MG TAB PO ONE (22:40)
[2019-04-16] MEDS ORDERED: Oxycodone HCl/Acetaminophen 1 TAB TAB ONE (22:44)
[2019-04-16] MEDS: Oxycodone HCl/Acetaminophen 1 TAB TAB PO PRN (22:45)
--- NOTE | 2019-04-17 00:09 | OP ---
Surgeon: Marek Rhodes MD This is a 33-year-old, 4, para 3, at 39 weeks' gestation, followed antepartum. Rh negative. Received RhoGAM during the . Immune to Rubella. Positive beta strep screen. Received 2 d oses of penicillin during her labor. At approximately 2.5 to 3 cm, rupture of membranes was performe d. Patient had Stadol IV prior to that. Requested epidural anesthesia. This was established. She went rapidly to complete second stage of 20 to 25 minutes. Spontaneous vaginal delivery of an estima treva 6.5 to 7 pounds female, loose nuchal cord x1. Apgars 9 and 9. No episiotomy. No lacerations. Light delivery of the placenta. Uterus contracted down well with IV drip Pitocin. Estimated blood loss 400 mL or less. Tolerated all procedures well. Final Diagnoses: Term intrauterine . Labor induction. Vaginal delivery. Epidural anesthe al. RhoGAM pending. COOPER/TAL Voice ID: [id number] Report ID: [id number]
[2019-04-17] MEDS ORDERED: Oxycodone HCl/Acetaminophen 1 TAB TAB ONE ×2 (05:35→11:25)
[2019-04-17] MEDS: Oxycodone HCl/Acetaminophen 1 TAB TAB PO PRN ×2 (05:37→11:23)
[2019-04-17 05:43] LABS: RPR (Rapid Plasma Reagin) NON-REACT (NON-REACT)
[2019-04-17] MEDS ORDERED: INFLUENZA VACCINE (for 3y+) 0.5 ML DOSE IMVAC ONE (07:36)
--- NOTE | 2019-04-17 07:55 | PN ---
Patient is now 4 cm, 80% effaced, 0 station. Rupture of membranes, clear fluid. She has had a dose of Stadol IV, Phenergan IM. She is requesting epidural. We will start hydrating her get it ordered and in as soon as possible. COOPER/TAL Voice ID: [id number] Report ID: [id number]
[2019-04-17 11:43] VITALS: BP 114/78; TEMP 97.7
--- NOTE | 2019-04-18 02:02 | DS ---
Date of Discharge: 04/17/2019 History: A 33-year-old 4, para 3, 39 weeks gestation, followed antepartum, Rh negative, rece ived RhoGAM during the . Immune to Rubella. Positive beta strep screen. During her labor, received 2 doses of penicillin. At 2.5 to 3 cm, rupture of membranes was performed. The patient rowe d IV Stadol prior to her epidural. Epidural was established, she went very rapidly thereafter. Seco nd stage of 20-25 minutes spontaneous vaginal delivery of an estimated 6.5 to 7 pounds female. Loose nuchal cord. Apgars 9 and 9. No episiotomy. No laceration. Light delivery of the placenta. [place] rola contracted down well with IV drip, Pitocin, massage. Estimated blood loss 400 mL or less. Postp artum; afebrile, ambulating, voiding. Lochia is normal. She has had her Tdap immunization. She req uests analgesics on dismissal. We will give her tramadol. She knows this goes through breast milk. No post epidural problems. Final Diagnoses: Term intrauterine . Vaginal delivery. Epidural anesthesia. RhoGAM pendi ng. All immunizations current. NBC/MODL Voice ID: [id number] Report ID: [id number]
[2019-04-19 05:48] LABS: HBsAG Nonreactive (Nonreactive)
== END 2019-04-17 15:30 | disposition home or self-care (01) | DRG 807 ==
LOC: 2ND-WC 04:25
PROVIDERS: ADMIT Specialist; ATTEND Specialist
PROC: 10E0XZZ Delivery of Products of Conception, External Approach (ICD-10-PCS; principal; 2019-04-16)
PROC: 3E033VJ Introduction of Other Hormone into Peripheral Vein, Percutaneous Approach (ICD-10-PCS; 2019-04-16)
DX: O80 Encounter for full-term uncomplicated delivery (principal); Z37.0 Single live birth; Z3A.39 39 weeks gestation of pregnancy
CPT/HCPCS: 36415; 81001; 85025; 85461; 86592; 86901; 87340; 90471; J0595; J2210; J2550; J2590; J3010; J7120; Q2035

== ENCOUNTER 2021-09-02 16:18 | Emergency (ER) | payer OTHER ==
--- OUTSIDE RECORDS SUMMARY | 2021-09-02 16:21 | XMS REPORT | Continuity of Care Document ---
:1985 Author Organization [facility] t Address [address] [place] [address] Care Team Providers Name Role Phone Dakota Ventura DO Attending Clinician Ji NOBLES Attending Clinician Unavailable Ji Perez Attending Clinician Doctor Unassigned, Name Attending Clinician Unavailable Irma LEVY Attending Clinician Unavailable Irma LEVY Admitting Clinician Unavailable Payers Payer Name Policy Type Policy Number Effective Date Expiration Date S ource Problems Condition Condition Condition Status Onset Resolution Last Treating Co mments Source Name Details Category Date Date Treatment Clinician Date Contracept Contracept Disease Active U nivers diane diane 5-10 ity of management [place] [facility] Nexplanon Nexplanon Disease Active Uni vers removal removal 2-12 ity of 00:00: [place] [address] Medical Branch History of History of Disease Active U nivers abnormal abnormal 1-28 ity of Pap smear Pap smear 00:00: [address] Over Over Disease Active Overview: Univer s weight weight 1-28 ICD10 ity of 00:00: Diagnosis [place] [address] Term [facility] [place] [facility] Utility Allergies, Adverse Reactions, Alerts Allergy Allergy Status Severity Reaction(s) Onset Inactive Treating Comm ents Source Name Type Date Date Clinician NO KNOWN Drug Active Univers ALLERGIE Class ity of S [facility] Social History Social Habit Start Date Stop Date Quantity Comments Source Exposure to Not sure [facility] SARS-CoV-2 [facility] (event) Branch Tobacco use and 2020-01-19 2020-01-19 Never used Universit y of exposure 00:00:00 00:00:00 [facility] Alcohol intake 2020-01-19 2020-01-19 Current University 00:00:00 00:00:00 non-drinker of [facility] [place] [facility] alcohol Branch (finding) Sex Assigned At [birth year] Universit y of 00:00:00 00:00:00 [facility] Smoking Status Start Date Stop Date Source Never smoker [facility] Branch Medications Ordered Filled Start Stop Current Ordering Indication Dosage Frequency Signature Comments Components Source Medication Medication Date Date Medication? Clinician (SIG) Name Name norgestimat Yes [id number] 1{tbl} Take 1 Univers e-ethinyl 5-10 tablet by ity o f estradiol 00:00: mouth [place] (ORTHO 00 daily. [facility], Branch 28,) 0.18/0.215/ 0.25 mg-35 mcg (28) tablet norgestimat 2017- Yes [id number] 1{tbl} Take 1 Univers e-ethinyl 5-10 tablet by ity o f estradiol 00:00: mouth [place] (ORTHO 00 daily. [facility], [place] 28,) 0.18/0.215/ 0.25 mg-35 mcg (28) tablet norgestimat Yes [id number] 1{tbl} Take 1 Univers e-ethinyl 5-10 tablet by ity o f estradiol 00:00: mouth [place] (ORTHO 00 daily. [facility], [place] 28,) 0.18/0.215/ 0.25 mg-35 mcg (28) tablet norgestimat 2017-0 Yes [id number] 1{tbl} Take 1 Univers e-ethinyl 5-10 tablet by ity o f estradiol 00:00: mouth [place] (ORTHO 00 daily. [facility], [place] 28,) 0.18/0.215/ 0.25 mg-35 mcg (28) tablet norgestimat 2017-0 Yes [id number] 1{tbl} Take 1 Univers e-ethinyl 5-10 tablet by ity o f estradiol 00:00: mouth [place] (ORTHO 00 daily. [facility], [place] 28,) 0.18/0.215/ 0.25 mg-35 mcg (28) tablet norgestimat 2017- Yes [id number] 1{tbl} Take 1 Univers e-ethinyl 5-10 tablet by ity o f estradiol 00:00: mouth [place] (ORTHO 00 daily. [facility], Branch 28,) 0.18/0.215/ 0.25 mg-35 mcg (28) tablet norgestimat Yes [id number] 1{tbl} Take 1 Univers e-ethinyl 5-10 tablet by ity o f estradiol 00:00: mouth [place] (ORTHO 00 daily. [facility], Branch 28,) 0.18/0.215/ 0.25 mg-35 mcg (28) tablet Condoms Yes [id number] Use as Uni vers Latex 1-28 directed ity of Non-[place]ub[place] 00:00: [place] [facility] ([employer] Branch A NON-LUB CONDOMS) [place] Condoms Yes [id number] Use as Uni vers Latex 1-28 directed ity of Non-[place]ub[place] 00:00: [place] [facility] ([employer] Branch A NON-LUB CONDOMS) [place] Condoms Yes [id number] Use as Uni vers Latex 1-28 directed ity of Non-[place]ub[place] 00:00: [place] [facility] ([employer] Branch A NON-LUB CONDOMS) [place] Condoms Yes [id number] Use as Uni vers Latex 1-28 directed ity of Non-[place]ub[place] 00:00: [place] [facility] ([employer] Branch A NON-LUB CONDOMS) [place] Condoms Yes [id number] Use as Uni vers Latex 1-28 directed ity of Non-[place] 00:00: [place] [facility] ([employer] Branch A NON-LUB CONDOMS) [place] Condoms Yes [id number] Use as Uni vers Latex 1-28 directed ity of Non-[place]ub[place] 00:00: [place] [facility] ([employer] Branch A NON-LUB CONDOMS) [place] Condoms Yes [id number] Use as Uni vers Latex 1-28 directed ity of Non-[place]ub[place] 00:00: [place] [facility]ul 00 Medical ([employer] Branch A NON-LUB CONDOMS) [place] Immunizations Ordered Filled Immunization Date Status Comments [facility] e Immunization Name Name Influenza Virus 2020-01-12 Completed Universit y of Vaccine [place] .5 mL 00:00:00 [place] [facility] IM 6+ MO Branch Influenza Virus 2020-01-12 Completed Universit y of Vaccine [place] .5 mL 00:00:00 [place] [facility] IM 6+ MO Branch Influenza Virus 2020-01-12 Completed Universit y of Vaccine [place] .5 mL 00:00:00 [place] [facility] IM 6+ MO Branch Influenza Virus 2020-01-12 Completed Universit y of Vaccine [place] .5 mL 00:00:00 [place] [facility] IM 6+ MO Branch Influenza Virus 2020-01-12 Completed Universit y of Vaccine [place] .5 mL 00:00:00 [place] [facility] IM 6+ MO Branch Influenza Virus 2020-01-12 Completed Universit y of Vaccine [place] .5 mL 00:00:00 [facility] IM 6+ MO Branch TDAP 2014-05-05 Completed University of 00:00:00 [facility] Branch TDAP 2014-05-05 Completed University of 00:00:00 [facility] TDAP 2014-05-05 Completed University of 00:00:00 [facility] TDAP 2014-05-05 Completed University of 00:00:00 [facility] TDAP 2014-05-05 Completed University of 00:00:00 [facility] TDAP 2014-05-05 Completed University of 00:00:00 [facility] TDAP 2014-05-05 Completed University of 00:00:00 [facility] Tetanus/Diptheria 1999-04-08 Completed Univers ity of 00:00:00 [facility] Tetanus/Diptheria 1999-04-08 Completed Univers ity of 00:00:00 [facility] Tetanus/Diptheria 1999-04-08 Completed Univers ity of 00:00:00 [facility] Tetanus/Diptheria 1999-04-08 Completed Univers ity of 00:00:00 [facility] Tetanus/Diptheria 1999-04-08 Completed Univers ity of 00:00:00 [facility] Tetanus/Diptheria 1999-04-08 Completed Univers ity of 00:00:00 [facility] Tetanus/Diptheria 1999-04-08 Completed Univers ity of 00:00:00 [facility] Vital Signs Vital Name Observation Time Observation Value Comments Source Systolic blood 2020-01-19 20:11:00 107 mm[Hg] Univer sity of pressure [facility] Diastolic blood 2020-01-19 20:11:00 69 mm[Hg] Unive rsity of pressure [facility] Heart rate 2020-01-19 20:11:00 63 /min Universi ty of [facility] Body temperature 2020-01-19 20:11:00 36.39 Gema Univ ersity of [facility] Respiratory rate 2020-01-19 20:11:00 16 /min Univ ersity of [facility] Body height 2020-01-19 20:11:00 162.6 cm Universi ty of [facility] Body weight 2020-01-19 20:11:00 81.364 kg Universi ty of [facility] BMI 2020-01-19 20:11:00 30.79 kg/m2 Universi ty of [facility] Body weight 2020-01-12 15:44:00 80.967 kg Universi ty of [facility] BMI 2020-01-12 15:44:00 30.64 kg/m2 Universi ty of [facility] Systolic blood 2020-01-12 15:44:00 117 mm[Hg] Univer sity of pressure [facility] Diastolic blood 2020-01-12 15:44:00 80 mm[Hg] Unive rsity of pressure [facility] Heart rate 2020-01-12 15:44:00 75 /min Universi ty of [facility] Body temperature 2020-01-12 15:44:00 36.78 Gema Univ ersity [facility] Respiratory rate 2020-01-12 15:44:00 16 /min Univ ersity of [facility] Body height 2020-01-12 15:44:00 162.6 cm Universi ty [facility] Procedures Procedure Date / Time Performed Performing Clinician Sourc e FLU VACC ([id number]), 2020-01-12 16:06:23 María Nobles [facility] 6+ MONTHS, IM, QUAD Medical Bran ch NOTICE OF PRIVACY 2020-01-12 15:04:36 Doctor Unassigned, No Univ [facility] PRACTICES Name Medical Branch Encounters Start End Encounter Admission Attending Care Care Encounter Source Date/Time Date/Time Type Type Clinicians Facility Department ID 2020-06-27 2020-06-27 Patient Lorenzo [facility] [id number] Univers 00:00:00 00:00:00 Outreach [place] PRIMARY [id number] i ty of [facility] [id number] [id number] Me dical 388 Branch 2020-05-23 2020-05-23 Outpatient R AKINSIPE, [facility] [id number] Univers 13:15:00 13:15:00 MARÍA [id number] ity o [facility] 2020-05-23 2020-05-23 Outpatient R AKINSIPE, [facility] [id number] Univers 13:15:00 13:15:00 MARÍA ity o [facility] 2020-01-19 2020-01-28 Office Verito, [facility] [id number] Univers 14:59:48 13:58:15 Visit [facility] C ACADEMIC HOSPITALIST [id number] ity of REGIONAL [id number] [place] as MATERNAL [id number] [facility] [address] 2020-01-19 2020-01-19 Outpatient R AKINSIPE, [facility] [id number] Univers 15:15:00 15:15:00 MARÍA [id number] ity o [facility] 2020-01-19 2020-01-19 Outpatient R AKINSIPE, [facility] [id number] Univers 15:15:00 15:15:00 MARÍA ity o [facility] 2020-01-12 2020-01-12 [facility] [id number] Univers 10:07:41 11:25:26 Visit [facility] ACADEMIC HOSPITALIST [id number] ity of REGIONAL [id number] [place] as MATERNAL [id number] [facility] & [address] 2020-01-12 2020-01-12 Outpatient R AKINSIPE, [facility] [id number] Univers 10:15:00 10:15:00 MARÍA ity o [facility] 2020-01-12 2020-01-12 Outpatient R AKINSIPE, [facility] [id number] Univers 10:15:00 10:15:00 MARÍA ity o [facility] 2020-01-12 2020-01-12 Orders Doctor VUONG [id number] Univers 00:00:00 00:00:00 Only Unassigned, JOSIE [id number] ity of [place] [facility] [id number] [place] as [id number] [facility] 009 Branch Results Test Description Test Time Test Comments Results Result Comments Source AFB CULTURE + SMEAR 2018-08-13 10:28:00 Test Item Value Reference Range Interpretation Comme nts CULTURE (BEAKER) (test code = 1095) No acid-fast bacilli isolated i n 42 days AFB SMEAR (BEAKER) (test code = 994) No acid fast bacilli seen AFB CULTURE + [id number] 10:28:00 Test Item Value Reference Range Interpretation Comments CULTURE (BEAKER) (test No acid-fast bacilli code = 1095) isolated in 42 days AFB SMEAR (BEAKER) No acid fast bacilli (test code = 994) seen FUNGUS CULTURE + [id number] 17:20:00 Test Item Value Reference Range Interpretation Comments CULTURE (BEAKER) (test No fungus isolated in code = 1095) 28 days FUNGUS SMEAR (BEAKER) No fungi seen (test code = 1406) FUNGUS CULTURE + [id number] 17:20:00 Test Item Value Reference Range Interpretation Comments CULTURE (BEAKER) (test No fungus isolated in code = 1095) 28 days FUNGUS SMEAR (BEAKER) No fungi seen (test code = 1406) FL, VP INFORMATICS IN OR/30 MINUTE [id number] 15:08:00Reason for exam:- >cystoscopy, right ureteroscopy, possible laser lithotripsy vs stent exchange FINAL REPORT TECHNICAL NOTE-C-ARM FLUOROSCOPY C-arm utilized during urologic procedure. No interpretation rendered. Fluoroscopy time 18.2 seconds. Cumulative dose 241.6 mrad. Signed: Abelino Valdes MDReport Verified Date/Time: 07/23/2018 15:08:17 Reading Location: [address] Reading Room POCT-HEMOGLOBIN [id number] 12:25:00 Test Item Value Reference Range Interpretation Comments POC-HEMOGLOBIN METER 12.3 g/dL 12.0-15.0 TESTED AT [facility] [address] ([facility] (test code = [place]KAR[place] 1539) [address] URINE [id number] 09:31:00 Test Item Value Reference Range Interpretation Comments CULTURE (BEAKER) (test >100,000 col/mL skin code = 1095) alondra HCG, QUANTITATIVE, [id number] 17:15:00 Test Item Value Reference Range Interpretation Comments GONADOTROPIN, CHORIONIC (HCG) QUANT < mIU/mL 0-10 (BEAKER) (test code = 649) Non- Females: <10 mIU/mL Females: Gestation Age Reference Range(mIU/mL) 0.2-1 Week 5-50 1-2 Weeks 50-500 2-3 Weeks 100-5,000 3-4Weeks 500-10,000 4-5 Weeks 1,000-50,000 5-6 Weeks 10,000-100,000 6-8 Weeks 15,000-200,000 2-3 Months 10,000-100,000COMPREHENSIVE METABOLIC [id number] 17:14:00 Test Item Value Reference Range Interpretation Comments TOTAL PROTEIN 7.9 gm/dL 6.0-8.3 Specimen sligh tly (BEAKER) (test code = hemoly zed 770) ALBUMIN (BEAKER) 4.4 g/dL 3.5-5.0 Specimen sl ightly (test code = 1145) hemolyzed ALKALINE PHOSPHATASE 94 U/L 40-150 (BEAKER) (test code = 346) BILIRUBIN TOTAL 0.2 mg/dL 0.2-1.2 Specimen sli ghtly (BEAKER) (test code = hemoly zed 377) SODIUM (BEAKER) (test 141 meq/L 136-145 code = 381) POTASSIUM (BEAKER) 4.6 meq/L 3.5-5.1 Specimen slightly (test code = 379) hemolyzed CHLORIDE (BEAKER) 106 meq/L 98-107 (test code = 382) CO2 (BEAKER) (test 26 meq/L 22-29 code = 355) BLOOD UREA NITROGEN 17 mg/dL 7-21 (BEAKER) (test code = 354) CREATININE (BEAKER) 0.79 mg/dL 0.57-1.25 Specimen slightly (test code = 358) hemolyzed GLUCOSE RANDOM 76 mg/dL 70-105 (BEAKER) (test code = 652) CALCIUM (BEAKER) 9.8 mg/dL 8.4-10.2 (test code = 697) AST (SGOT) (BEAKER) 34 U/L 5-34 Specimen slightly (test code = 353) hemolyzed ALT (SGPT) (BEAKER) 53 U/L 6-55 Specimen slightly (test code = 347) hemolyzed EGFR (BEAKER) (test 84 mL/min/1.73 ESTIMA RAHUL GFR IS code = 1092) sq m NOT ACCURATE CREATININE CLEARANCE IN PREDICTING GLOMERULAR FILTRATION RATE . ESTIMATED GFR I S NOT APPLICABLE FOR DIALYSIS PATIEN TS. URINALYSIS W/ [id number] 16:51:00 Test Item Value Reference Range Interpretation Comments COLOR (BEAKER) (test code = 470) Light Yellow CLARITY (BEAKER) (test code = Clear 469) SPECIFIC GRAVITY UA (BEAKER) 1.015 1.001-1.035 (test code = 468) PH UA (BEAKER) (test code = 467) 7.0 5.0-8.0 PROTEIN UA (BEAKER) (test code = 20 mg/dL Negative A 464) GLUCOSE UA (BEAKER) (test code = Negative Negative 365) KETONES UA (BEAKER) (test code = Negative Negative 371) BILIRUBIN UA (BEAKER) (test code Negative Negative = 462) BLOOD UA (BEAKER) (test code = Moderate Negative A 461) NITRITE UA (BEAKER) (test code = Negative Negative 465) LEUKOCYTE ESTERASE UA (BEAKER) Large Negative A (test code = 466) UROBILINOGEN UA (BEAKER) (test 0.2 mg/dL 0.2-1.0 code = 463) RBC UA (BEAKER) (test code = 65 /HPF 519) WBC UA (BEAKER) (test code = 10 /HPF 520) BACTERIA (BEAKER) (test code = Few 517) SQUAMOUS EPITHELIAL (BEAKER) < /HPF (test code = 516) SOURCE(BEAKER) (test code = 7109) CBC W/PLT COUNT & AUTO [id number] 16:48:00 Test Item Value Reference Range Interpretation Comments WHITE BLOOD CELL COUNT (BEAKER) 12.4 K/ L 3.5-10.5 H (test code = 775) RED BLOOD CELL COUNT (BEAKER) 4.47 M/ L 3.93-5.22 (test code = 761) HEMOGLOBIN (BEAKER) (test code = 12.6 GM/DL 11.2-15.7 410) HEMATOCRIT (BEAKER) (test code = 39.4 % 34.1-44.9 411) MEAN CORPUSCULAR VOLUME (BEAKER) 88.1 fL 79.4-94.8 (test code = 753) MEAN CORPUSCULAR HEMOGLOBIN 28.2 pg 25.6-32.2 (BEAKER) (test code = 751) MEAN CORPUSCULAR HEMOGLOBIN CONC 32.0 GM/DL 32.2-35.5 L (BEAKER) (test code = 752) RED CELL DISTRIBUTION WIDTH 12.7 % 11.7-14.4 (BEAKER) (test code = 412) PLATELET COUNT (BEAKER) (test 307 K/CU MM 150-450 code = 756) MEAN PLATELET VOLUME (BEAKER) 9.3 fL 9.4-12.3 L (test code = 754) NUCLEATED RED BLOOD CELLS 0 /100 WBC 0-0 (BEAKER) (test code = 413) NEUTROPHILS RELATIVE PERCENT 64 % (BEAKER) (test code = 429) LYMPHOCYTES RELATIVE PERCENT 24 % (BEAKER) (test code = 430) MONOCYTES RELATIVE PERCENT 7 % (BEAKER) (test code = 431) EOSINOPHILS RELATIVE PERCENT 4 % (BEAKER) (test code = 432) BASOPHILS RELATIVE PERCENT 1 % (BEAKER) (test code = 437) NEUTROPHILS ABSOLUTE COUNT 7.94 K/ L 1.56-6.13 H (BEAKER) (test code = 670) LYMPHOCYTES ABSOLUTE COUNT 3.03 K/ L 1.18-3.74 (BEAKER) (test code = 414) MONOCYTES ABSOLUTE COUNT (BEAKER) 0.81 K/ L 0.24-0.36 H (test code = 415) EOSINOPHILS ABSOLUTE COUNT 0.47 K/ L 0.04-0.36 H (BEAKER) (test code = 416) BASOPHILS ABSOLUTE COUNT (BEAKER) 0.11 K/ L 0.01-0.08 H (test code = 417) IMMATURE GRANULOCYTES-RELATIVE 0 % 0-1 PERCENT (BEAKER) (test code = 2801) SURGICALLY OBTAINED CULTURE + GRAM [id number] 08:48:00 Test Item Value Reference Range Interpretation Comments CULTURE (BEAKER) (test code No growth = 1095) GRAM STAIN RESULT (BEAKER) No WBCs (test code = 1123) GRAM STAIN RESULT (BEAKER) No organisms seen (test code = 08386) SPIN/CONCENTRATION [id number] 15:38:00 Test Item Value Reference Range Interpretation Comments CONCENTRATION CHARGED (BEAKER) (test Done code = 2657) SPIN/CONCENTRATION [id number] 15:37:00 Test Item Value Reference Range Interpretation Comments CONCENTRATION CHARGED (BEAKER) (test Done code = 2657) URINE [id number] 11:23:00 Test Item Value Reference Range Interpretation Comments CULTURE (BEAKER) (test code = 1095) No growth CBC W/PLT COUNT & AUTO [id number] 08:27:00 Test Item Value Reference Range Interpretation Comments WHITE BLOOD CELL COUNT (BEAKER) 9.9 K/ L 3.5-10.5 (test code = 775) RED BLOOD CELL COUNT (BEAKER) 4.09 M/ L 3.93-5.22 (test code = 761) HEMOGLOBIN (BEAKER) (test code = 11.5 GM/DL 11.2-15.7 410) HEMATOCRIT (BEAKER) (test code = 35.9 % 34.1-44.9 411) MEAN CORPUSCULAR VOLUME (BEAKER) 87.8 fL 79.4-94.8 (test code = 753) MEAN CORPUSCULAR HEMOGLOBIN 28.1 pg 25.6-32.2 (BEAKER) (test code = 751) MEAN CORPUSCULAR HEMOGLOBIN CONC 32.0 GM/DL 32.2-35.5 L (BEAKER) (test code = 752) RED CELL DISTRIBUTION WIDTH 12.9 % 11.7-14.4 (BEAKER) (test code = 412) PLATELET COUNT (BEAKER) (test 209 K/CU MM 150-450 code = 756) MEAN PLATELET VOLUME (BEAKER) 9.6 fL 9.4-12.3 (test code = 754) NUCLEATED RED BLOOD CELLS 0 /100 WBC 0-0 (BEAKER) (test code = 413) NEUTROPHILS RELATIVE PERCENT 63 % (BEAKER) (test code = 429) LYMPHOCYTES RELATIVE PERCENT 29 % (BEAKER) (test code = 430) MONOCYTES RELATIVE PERCENT 6 % (BEAKER) (test code = 431) EOSINOPHILS RELATIVE PERCENT 2 % (BEAKER) (test code = 432) BASOPHILS RELATIVE PERCENT 0 % (BEAKER) (test code = 437) NEUTROPHILS ABSOLUTE COUNT 6.19 K/ L 1.56-6.13 H (BEAKER) (test code = 670) LYMPHOCYTES ABSOLUTE COUNT 2.81 K/ L 1.18-3.74 (BEAKER) (test code = 414) MONOCYTES ABSOLUTE COUNT (BEAKER) 0.61 K/ L 0.24-0.36 H (test code = 415) EOSINOPHILS ABSOLUTE COUNT 0.19 K/ L 0.04-0.36 (BEAKER) (test code = 416) BASOPHILS ABSOLUTE COUNT (BEAKER) 0.03 K/ L 0.01-0.08 (test code = 417) IMMATURE GRANULOCYTES-RELATIVE 0 % 0-1 PERCENT (BEAKER) (test code = 2801) BASIC METABOLIC [id number] 06:20:00 Test Item Value Reference Range Interpretation Comments SODIUM (BEAKER) 141 meq/L 136-145 (test code = 381) POTASSIUM (BEAKER) 4.0 meq/L 3.5-5.1 (test code = 379) CHLORIDE (BEAKER) 111 meq/L 98-107 H (test code = 382) CO2 (BEAKER) (test 22 meq/L 22-29 code = 355) BLOOD UREA NITROGEN 10 mg/dL 7-21 (BEAKER) (test code = 354) CREATININE (BEAKER) 0.77 mg/dL 0.57-1.25 (test code = 358) GLUCOSE RANDOM 85 mg/dL 70-105 (BEAKER) (test code = 652) CALCIUM (BEAKER) 8.5 mg/dL 8.4-10.2 (test code = 697) EGFR (BEAKER) (test mL/min/1.73 INSUFFIC IENT CLINICAL code = 1092) sq m DATA TO CALCULA TE ESTIMATED GFR. FL, VP INFORMATICS IN OR/30 MINUTE [id number] 19:39:00Reason for exam:- >Cystoscopy and stent placementFINAL REPORT Examination: Retrograde pyelography 38 fluoroscopic spot views were obtained during the procedure by the ordering service. Images are nondiagnostic as no radiologist was present at the time of imaging. Fluoroscopic time was not provided. Please see the procedurereport for details. Signed: Magnus Paez MDReport Verified Date/Time: 06/28/2018 19:39:39 Reading Location: [address] Reading Room Electronically signed by: MAGNUS PAEZ M.D. on06/28/2018 07:39 PMURINALYSIS W/ REFLEX URINE [id number] 17:11:00 Test Item Value Reference Range Interpretation Comments COLOR (BEAKER) (test code = 470) Yellow CLARITY (BEAKER) (test code = 469) Hazy SPECIFIC GRAVITY UA (BEAKER) (test 1.015 1.001-1.035 code = 468) PH UA (BEAKER) (test code = 467) 6.5 5.0-8.0 PROTEIN UA (BEAKER) (test code = 20 mg/dL Negative A 464) GLUCOSE UA (BEAKER) (test code = Negative Negative 365) KETONES UA (BEAKER) (test code = 20 mg/dL Negative A 371) BILIRUBIN UA (BEAKER) (test code = Negative Negative 462) BLOOD UA (BEAKER) (test code = 461) Large Negative A NITRITE UA (BEAKER) (test code = Negative Negative 465) LEUKOCYTE ESTERASE UA (BEAKER) Large Negative A (test code = 466) UROBILINOGEN UA (BEAKER) (test code 0.2 mg/dL 0.2-1.0 = 463) RBC UA (BEAKER) (test code = 519) 18 /HPF WBC UA (BEAKER) (test code = 520) 6 /HPF BACTERIA (BEAKER) (test code = 517) Many SQUAMOUS EPITHELIAL (BEAKER) (test 6 /HPF code = 516) SOURCE(BEAKER) (test code = 2795) SCREEN, [id number] 17:06:00 Test Item Value Reference Range Interpretation Comments TEST URINE (BEAKER) (test Negative code = 583)
--- NOTE | 2021-09-02 22:02 | EDPHYS ---
Physician Documentation [facility] Name: Charlene Kramer Age: 36 yrs Sex: Female : 1985 Arrival Date: 09/02/2021 Time: 16:20 Bed 4 Private MD: ED Physician Chicho Zee HPI: 09/03 15:26 This 36 yrs old Female presents to ER via Ambulatory with complaints of kdr Diarrhea, Runny Nose, bodyaches, Sore Throat. 15:27 Patient presents with body aches, sore throat, runny nose and nasal congestion for the kdr past week. Patient indicates that she has not had a fever that was measurable. She is otherwise been in her usual state of health. She does not appear toxic in any way on initial presentation. Onset: The symptoms/episode began/occurred gradually, 1 week(s) ago. Severity of symptoms: At their worst the symptoms were mild moderate just prior to arrival, in the emergency department the symptoms are unchanged. The patient has not experienced similar symptoms in the past. The patient has not recently seen a physician. 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 - Social history:: Smoking status: Patient denies any tobacco usage or history of. Patient/guardian denies using alcohol. ROS: 09/03 15:27 Constitutional: Negative for fever, chills, and weight loss, Eyes: Negative for injury, kdr pain, redness, and discharge, Neck: Negative for injury, pain, and swelling, Cardiovascular: Negative for chest pain, palpitations, and edema, Abdomen/GI: Negative for abdominal pain, nausea, vomiting, diarrhea, and constipation, Back: Negative for injury and pain, : Negative for injury, bleeding, discharge, and swelling, MS/Extremity: Negative for injury and deformity, Skin: Negative for injury, rash, and discoloration, Neuro: Negative for headache, weakness, numbness, tingling, and seizure activity. Psych: Negative for depression, anxiety, suicide ideation, homicidal ideation, and hallucinations, Allergy/Immunology: Negative for hives, rash, and allergies, Endocrine: Negative for neck swelling, polydipsia, polyuria, polyphagia, and marked weight changes, Hematologic/Lymphatic: Negative for swollen nodes, abnormal bleeding, and unusual bruising. Constitutional: Positive for body aches, chills, fatigue, malaise. Respiratory: Positive for cough, with no reported sputum. Exam: 15:27 Constitutional: This is a well developed, well nourished patient who is awake, alert, kdr and in no acute distress. Head/Face: Normocephalic, atraumatic. Eyes: Pupils equal round and reactive to light, extra-ocular motions intact. Lids and lashes normal. Conjunctiva and sclera are non-icteric and not injected. Cornea within normal limits. Periorbital areas with no swelling, redness, or edema. Neck: Trachea midline, no thyromegaly or masses palpated, and no cervical lymphadenopathy. Supple, full range of motion without nuchal rigidity, or vertebral point tenderness. No Meningismus. Chest/axilla: Normal chest wall appearance and motion. Nontender with no deformity. No lesions are appreciated. Cardiovascular: Regular rate and rhythm with a normal S1 and S2. No gallops, murmurs, or rubs. Normal PMI, no JVD. No pulse deficits. Respiratory: Lungs have equal breath sounds bilaterally, clear to auscultation and percussion. No rales, rhonchi or wheezes noted. No increased work of breathing, no retractions or nasal flaring. Abdomen/GI: Soft, non-tender, with normal bowel sounds. No distension or tympany. No guarding or rebound. No evidence of tenderness throughout. Back: No spinal tenderness. No costovertebral tenderness. Full range of motion. Skin: Warm, dry with normal turgor. Normal color with no rashes, no lesions, and no evidence of cellulitis. MS/ Extremity: Pulses equal, no cyanosis. Neurovascular intact. Full, normal range of motion. Neuro: Awake and alert, GCS 15, oriented to person, place, time, and situation. Cranial nerves II-XII grossly intact. Motor strength 5/5 in all extremities. Sensory grossly intact. Cerebellar exam normal. Normal gait. Psych: Awake, alert, with orientation to person, place and time. Behavior, mood, and affect are within normal limits. Vital Signs: 09/02 16:49 BP 119 / 72; Pulse 86; Resp 18; Temp 98.2(TE); Pulse Ox 98% on R/A; Weight 86.18 kg; ld1 Height 5 ft. 4 in. (162.56 cm); Pain 0/10; 22:26 BP 137 / 88; Pulse 80; Resp 16; Pulse Ox 98% on R/A; jb4 16:49 Body Mass Index 32.61 (86.18 kg, 162.56 cm) ld1 MDM: 19:58 Patient medically screened. cp 22:00 Data reviewed: vital signs. Data interpreted: Pulse oximetry: on room air is 98 %. pm1 Interpretation: normal. Counseling: I had a detailed discussion with the patient and/or guardian regarding: the historical points, exam findings, and any diagnostic results supporting the discharge/admit diagnosis, lab results, the need for outpatient follow up, a family practitioner, to return to the emergency department if symptoms worsen or persist or if there are any questions or concerns that arise at home. 09/02 16:32 Order name: Flu; Complete Time: 17:40 kdr 09/02 16:32 Order name: Strep; Complete Time: 17:40 kdr 09/02 17:10 Order name: Throat Culture EDMS 09/02 17:28 Order name: SARS-COV-2 RT PCR; Complete Time: 18:46 EDMS Administered Medications: No medications were administered Disposition: 09/03 07:44 Co-signature as Attending Physician, Chicho Zee MD I agree with the assessment and kdr plan of care. Disposition Summary: 09/02/21 22:01 Discharge Ordered Location: Home pm1 Problem: new pm1 Symptoms: have improved pm1 Condition: Stable pm1 Diagnosis - Diarrhea, unspecified pm1 - Acute pharyngitis, unspecified pm1 Followup: pm1 - With: Emergency Department - When: As needed - Reason: Worsening of condition Followup: pm1 - With: Private Physician - When: 2 - 3 days - Reason: Recheck today's complaints, Continuance of care, Re-evaluation by your physician Discharge Instructions: - Discharge Summary Sheet pm1 - Food Choices to Help Relieve Diarrhea, Adult pm1 - Diarrhea, Adult pm1 - Pharyngitis pm1 Forms: - Medication Reconciliation Form pm1 - Thank You Letter pm1 - Antibiotic Education pm1 - Prescription Opioid Use pm1 Signatures: Dispatcher [employer] EDMS Chicho Zee MD MD kdr Jose R Lam PA PA Shamar Shrestha, ASSISTANT WOMEN'S ROWING COACH ASSISTANT WOMEN'S ROWING COACH pm1 Carley Marshall RN RN ld1 Corrections: (The following items were deleted from the chart) 09/02 17:28 16:36 COVID 19 CPL+.BRZ ordered. EDMS EDMS
--- NOTE | 2021-09-02 22:02 | ER ---
Nurse's Notes [facility] Name: Charlene Kramer Age: 36 yrs Sex: Female : 1985 Arrival Date: 09/02/2021 Time: 16:20 Bed 4 Private MD: Diagnosis: Diarrhea, unspecified;Acute pharyngitis, unspecified Presentation: 09/02 16:49 Chief complaint: Patient states: Body aches, sore throat, runny nose and nasal ld1 congestion for the past week. Coronavirus screen: Client presents with at least one sign or symptom that may indicate coronavirus-19. Standard/surgical mask placed on the client. Ebola Screen: No symptoms or risks identified at this time. Initial Sepsis Screen: Does the patient meet any 2 criteria? No. Patient's initial sepsis screen is negative. Does the patient have a suspected source of infection? No. Patient's initial sepsis screen is negative. Risk Assessment: Do you want to hurt yourself or someone else? Patient reports no desire to harm self or others. Onset of symptoms was September 02, 2021 at 16:51. 16:49 Method Of Arrival: Ambulatory ld1 16:49 Acuity: RONY 4 ld1 Triage Assessment: 16:51 General: Appears in no apparent distress. comfortable, Behavior is calm, cooperative, ld1 appropriate for age. Pain: Denies pain. EENT: No signs and/or symptoms were reported regarding the EENT system. Neuro: Level of Consciousness is awake, alert, obeys commands, Oriented to person, place, time, situation. Cardiovascular: Capillary refill < 3 seconds Patient's skin is warm and dry. Rhythm is sinus rhythm. Respiratory: Airway is patent Respiratory effort is even, unlabored. GI: Abdomen is round non-distended. 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 - Social history:: Smoking status: Patient denies any tobacco usage or history of. Patient/guardian denies using alcohol. Screenin:56 Abuse screen: Denies threats or abuse. Denies injuries from another. Nutritional jl7 screening: No deficits noted. Tuberculosis screening: No symptoms or risk factors identified. Fall Risk None identified. Assessment: 19:00 Reassessment: Patient appears in no apparent distress at this time. Patient and/or jb4 family updated on plan of care and expected duration. Pain level reassessed. Patient is alert, oriented x 3, equal unlabored respirations, skin warm/dry/pink. 20:00 Reassessment: Patient appears in no apparent distress at this time. Patient and/or jb4 family updated on plan of care and expected duration. Pain level reassessed. Patient is alert, oriented x 3, equal unlabored respirations, skin warm/dry/pink. 21:00 Reassessment: Patient appears in no apparent distress at this time. Patient and/or jb4 family updated on plan of care and expected duration. Pain level reassessed. Patient is alert, oriented x 3, equal unlabored respirations, skin warm/dry/pink. 22:26 Reassessment: Patient appears in no apparent distress at this time. Patient and/or jb4 family updated on plan of care and expected duration. Pain level reassessed. Patient is alert, oriented x 3, equal unlabored respirations, skin warm/dry/pink. Vital Signs: 16:49 BP 119 / 72; Pulse 86; Resp 18; Temp 98.2(TE); Pulse Ox 98% on R/A; Weight 86.18 kg; ld1 Height 5 ft. 4 in. (162.56 cm); Pain 0/10; 22:26 BP 137 / 88; Pulse 80; Resp 16; Pulse Ox 98% on R/A; jb4 16:49 Body Mass Index 32.61 (86.18 kg, 162.56 cm) ld1 ED Course: 16:20 Patient arrived in ED. am2 16:22 Chicho Zee MD is Attending Physician. kdr 16:43 Strep Sent. ld1 16:43 Flu Sent. ld1 16:51 Triage completed. ld1 16:51 Arm band placed on right wrist. ld1 17:00 Strep Sent. ld1 17:00 Flu Sent. ld1 18:56 Patient has correct armband on for positive identification. jl7 19:39 Jose R Lam PA is PHCP. cp 22:26 No provider procedures requiring assistance completed. Patient did not have IV access jb4 during this emergency room visit. Administered Medications: No medications were administered Medication: 22: VIS not applicable for this client. jb4 Outcome: 22: Discharge ordered by . pm1 22: Discharged to home ambulatory. jb4 22: Condition: stable 22:26 Discharge instructions given to patient, Instructed on discharge instructions, follow up and referral plans. Demonstrated understanding of instructions, follow-up care. 22:28 Patient left the ED. jb4 Signatures: Chicho Zee MD MD kdr Jose R Lam, PA PA cp Shamra Ball, WINDY CREATIVE ART DIRECTOR pm1 Venu Wells RN RN jb4 Brandon Grossman RN RN jl7 Lisa Long am2 Carley Marshall RN RN ld1 Corrections: (The following items were deleted from the chart) 17:28 16:43 COVID 19 CPL+ drawn and sent. ld1 EDMS 22: 22:26 Inserted saline lock: jb4 jb4
[2021-09-02 23:11] VITALS: TEMP 98.2; O2SAT 98
[2021-09-02 23:14] VITALS: BP 137/88
== END 2021-09-02 22:28 | disposition home or self-care (01) ==
LOC: ER 16:18
DX: R19.7 Diarrhea, unspecified (principal); J02.9 Acute pharyngitis, unspecified; R05.9 Cough, unspecified; R09.81 Nasal congestion; Z20.822 Contact with and (suspected) exposure to COVID-19
CPT/HCPCS: 87070; 87081; 87804 ×2; 99284; U0003